=== PATIENT | female | born 1935 | race Caucasian/White ===

== ENCOUNTER 2017-01-23 01:58 | Observation (INO) | payer OTHER ==
[2017-01-23] VITALS (8 sets, daily range): BP systolic 120–155; BP diastolic 62–88; PULSE 89–102; RESP 15–18; TEMP 98.2–100.2; O2SAT 96–100
[~2017-01-23] VITALS: Ht 167.6 cm; Wt 72.7 kg
[~2017-01-23 01:58] MED LIST: HUMA100I SC; LEVEMIR SQ; LEVO.112 PO; LOSA50TA PO; QUET200 PO; VENL75CA44 PO
[2017-01-23] MEDS ORDERED: SODIUM CHLOR 0.9% 1000 ML INJ 1,000 ML IV ONE (02:31)
[2017-01-23] MEDS: SODIUM CHLORIDE 0.9% FLUSH 10 ML FLUSH IVF PRN ×2 (03:21→04:32)
[2017-01-23 03:33] LABS: AUTOMATED NEUTROPHIL # 5.5 TH/MM3 (1.8-7.7); BASOPHIL # 0.1 TH/MM3 (0-0.2); EOSINOPHIL # 0.4 TH/MM3 (0-0.4); EOSINOPHIL % 4.7 % (0.0-4.0); HEMATOCRIT 38.5 % (35.0-46.0); HEMO FLAGS DIFF FINAL; LYMPH % 23.8 % (9.0-44.0); LYMPHOCYTE # 2.1 TH/MM3 (1.0-4.8); MEAN CELL VOLUME 89.2 FL (80.0-100.0); MEAN CORPUSCULAR HEMOGLOBIN 29.5 PG (27.0-34.0); MEAN CORPUSCULAR HGB CONC 33.1 % (32.0-36.0); MONO % 9.1 % (0.0-8.0); NEUT % 61.4 % (16.0-70.0); PLATELET COUNT 156 TH/MM3 (150-450); RED BLOOD COUNT 4.32 MIL/MM3 (4.00-5.30); RED CELL DISTRIBUTION WIDTH 13.3 % (11.6-17.2); WHITE BLOOD COUNT 8.9 TH/MM3 (4.0-11.0)
[2017-01-23 03:51] LABS: ALT (GPT) 24 U/L (10-53); ANION GAP 8 MEQ/L (5-15); AST (GOT) 19 U/L (15-37); BICARBONATE 24.1 MEQ/L (21.0-32.0); BLOOD UREA NITROGEN 11 MG/DL (7-18); CHLORIDE 104 MEQ/L (98-107); GLOMERULAR FILTRATION RATE 45 ML/MIN (>89); POTASSIUM 4.3 MEQ/L (3.5-5.1); SODIUM (NA) 136 MEQ/L (136-145)
[2017-01-23 03:58] LABS: ALKALINE PHOSPHATASE 88 U/L (45-117); TOTAL BILIRUBIN ADULT 0.4 MG/DL (0.2-1.0)
[2017-01-23] MEDS ORDERED: ONDANSETRON HCL 4 MG/2 ML VIAL IV PUSH ONE (04:00)
--- NOTE | 2017-01-23 05:12 | RADRPT ---
EXAM DATE/TIME: 01/23/2017 04:25 [place] COMPARISON: CHEST SINGLE AP, July 13, 2016, 23:31. INDICATIONS : Chest pain. MEDICAL HISTORY : None. SURGICAL HISTORY : None. ENCOUNTER: Initial ACUITY: 1 day PAIN SCORE: 6/10 LOCATION: Bilateral chest FINDINGS: 2 portable frontal views of the chest demonstrate the lungs to be symmetrically aerated without evide nce of mass, infiltrate or effusion. The cardiomediastinal contours are unremarkable. Osseous struc tures are intact. CONCLUSION: No acute disease. Chapincito Landin Jr., MD on January 23, 2017 at 5:10 Board Certified Radiologist. This report was verified electronically.
[2017-01-23 05:38] LABS: BLOOD, URINE MOD (NEG); GLUCOSE,URINE 1000 mg/dL (NEG); KETONE, URINE NEG (NEG); NITRITE,URINE NEG (NEG); SQUAMOUS EPITHELIAL CELL URINE 1 /hpf (0-5); URINE COLOR LIGHT-YELLOW (YELLW/STRAW)
[2017-01-23 05:40] LABS: BACTERIA, URINE OCC /hpf; COMMENT (UR) CATH-CULTURE IND; CULTURE IF INDICATED CATH CULTURE IND
[2017-01-23] MEDS ORDERED: cefTRIAXone INJ 1,000 MG in SODIUM CHLORIDE 0.9% INJ 100 ML IV ONE (05:45)
--- NOTE | 2017-01-23 05:55 | PD ---
HPI Chief Complaint: Diabetic Time Seen by Provider: 02:27 Travel History International Travel<30 days: No Contact w/Intl Traveler<30days: No Traveled to known affect area: No History of Present Illness HPI 81-year-old female Armenian-speaking only arrives with an unknown complaint. translation services were provided with the online oriental medicine practitioner. pt was non- compliant with hpi with translatory. she held her head and cried "oh my god" repeatedly. she was unable to comply with hpi in any greater detail. in the initial attempt to interview the patient she stated responded no to questions about cp, n/v/d, fever/chills, sob and abdominal pain. 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) Psychiatric: Yes Reproductive: No Respiratory: No Radiation Therapy: No Thyroid Disease: Yes Tetanus Vaccination: Unknown ?: Unknown Past Surgical History Other Surgery: Yes Social History Alcohol Use: No Tobacco Use: No Substance Use: No Allergies-Medications (Allergen,Severity, Reaction): Coded Allergies: No Known Allergies (Unverified , 01/23/17) Reported Meds & Prescriptions Reported Meds & Active Scripts Active Active Prescriptions or Reported Medications Unobtainable Review of Systems Except as stated in HPI: all other systems reviewed are Neg General / Constitutional: No: Fever Physical Exam Narrative GENERAL: 81 F, WNWD, mild anxiety SKIN: Focused skin assessment warm/dry. HEAD: Atraumatic. Normocephalic. EYES: Pupils equal and round. No scleral icterus. No injection or drainage. ENT: No nasal bleeding or discharge. Mucous membranes pink and moist. NECK: Trachea midline. No JVD. CARDIOVASCULAR: Regular rate and rhythm. No murmur appreciated. RESPIRATORY: No accessory muscle use. Clear to auscultation. Breath sounds equal bilaterally. GASTROINTESTINAL: Soft. No focal tenderness. No flank tenderness. MUSCULOSKELETAL: No obvious deformities. No clubbing. No cyanosis. No edema. NEUROLOGICAL: Opens eyes and responds to voice but incomprehensible responses. No obvious cranial nerve deficit. Motor grossly within normal limits. PSYCHIATRIC: Appropriate mood and affect; insight and judgment normal. Data Data Last Documented VS Vital Signs Date Time Temp Pulse Resp B/P Pulse Ox O2 Delivery O2 Flow Rate FiO2 01/23/17 02:14 98.2 89 18 155/75 97 VS reviewed Orders Complete Blood Count With Diff (01/23/17 02:31) Comprehensive Metabolic Panel (01/23/17 02:31) Urinalysis - C+S If Indicated (01/23/17 02:31) Blood Glucose (01/23/17 02:31) Blood Glucose (01/23/17 03:31) Ecg Monitoring (01/23/17 02:31) Iv Access Insert/Monitor (01/23/17 02:31) Oximetry (01/23/17 02:31) NPO (01/23/17 02:31) Sodium Chlor 0.9% 1000 Ml Inj (Ns 1000 M (01/23/17 02:31) Sodium Chloride 0.9% Flush (Ns Flush) (01/23/17 02:45) Electrocardiogram (01/23/17 ) Chest, Single Ap (01/23/17 ) Ondansetron Inj (Zofran Inj) (01/23/17 04:00) Troponin I (01/23/17 04:36) Urine Culture (01/23/17 04:20) Ceftriaxone Inj (Rocephin Inj) (01/23/17 05:45) Admit Order (Ed Use Only) (01/23/17 06:19) Labs Laboratory Tests Test 01/23/17 01/23/17 03:10 04:20 White Blood Count 8.9 TH/MM3 Red Blood Count 4.32 MIL/MM3 Hemoglobin 12.7 GM/DL Hematocrit 38.5 % Mean Corpuscular Volume 89.2 FL Mean Corpuscular Hemoglobin 29.5 PG Mean Corpuscular Hemoglobin 33.1 % Concent Red Cell Distribution Width 13.3 % Platelet Count 156 TH/MM3 Mean Platelet Volume 9.5 FL Neutrophils (%) (Auto) 61.4 % Lymphocytes (%) (Auto) 23.8 % Monocytes (%) (Auto) 9.1 % Eosinophils (%) (Auto) 4.7 % Basophils (%) (Auto) 1.0 % Neutrophils # (Auto) 5.5 TH/MM3 Lymphocytes # (Auto) 2.1 TH/MM3 Monocytes # (Auto) 0.8 TH/MM3 Eosinophils # (Auto) 0.4 TH/MM3 Basophils # (Auto) 0.1 TH/MM3 CBC Comment DIFF FINAL Differential Comment Sodium Level 136 MEQ/L Potassium Level 4.3 MEQ/L Chloride Level 104 MEQ/L Carbon Dioxide Level 24.1 MEQ/L Anion Gap 8 MEQ/L Blood Urea Nitrogen 11 MG/DL Creatinine 1.15 MG/DL Estimat Glomerular Filtration 45 ML/MIN Rate Random Glucose 292 MG/DL Calcium Level 8.7 MG/DL Total Bilirubin 0.4 MG/DL Aspartate Amino Transf 19 U/L (AST/SGOT) Alanine Aminotransferase 24 U/L (ALT/SGPT) Alkaline Phosphatase 88 U/L Troponin I 0.02 NG/ML Total Protein 7.3 GM/DL Albumin 3.6 GM/DL Urine Color LIGHT-YELLOW Urine Turbidity CLEAR Urine pH 6.0 Urine Specific [place] 1.021 Urine Protein NEG mg/dL Urine Glucose (UA) 1000 mg/dL Urine Ketones NEG mg/dL Urine Occult Blood MOD Urine Nitrite NEG Urine Bilirubin NEG Urine Urobilinogen LESS THAN 2.0 MG/DL Urine Leukocyte Esterase SMALL Urine RBC 3 /hpf Urine WBC 14 /hpf Urine WBC Clumps OCC Urine Squamous Epithelial 1 /hpf Cells Urine Bacteria OCC /hpf Microscopic Urinalysis Comment CATH-CULTURE IND MDM Medical Decision Making Medical Screen Exam Complete: Yes Emergency Medical Condition: Yes Medical Record Reviewed: Yes Differential Diagnosis UTI, NSTEMI, anemia, renal failure, electrolyte imbalance Narrative Course CBC & BMP Diagram 01/23/17 03:10 LFTs normal Tn 0.02 UA: UTI present The patient will be admitted for IV antibiotics and reassessment. Discussed with Dr. Gomez. Diagnosis Primary Impression: UTI (urinary tract infection) Qualified Code: N30.00 - Acute cystitis without hematuria Additional Impression: Altered mental status Qualified Code: R41.82 - Altered mental status, unspecified altered mental status type Admitting Information Admitting Physician Requests: Observation Scripts Unable to Obtain Active Prescriptions or Reported Meds Ernesto Redd MD Jan 23, 2017 05:55 Admitting Information Admitting Physician Requests: Observation Ernesto Redd MD Jan 23, 2017 05:55
[2017-01-23] MEDS ORDERED: SODIUM CHLORIDE 0.9% FLUSH 10 ML FLUSH IV FLUSH PRN (06:30)
[2017-01-23] MEDS ORDERED: ONDANSETRON HCL 4 MG/2 ML VIAL IVP PRN (06:30)
[2017-01-23] MEDS ORDERED: NALOXONE HCL 0.4 MG/ML AMP IV PRN (06:30)
[2017-01-23] MEDS ORDERED: GLUCAGON 1 MG/ML VIAL OTHER PRN ×2 (06:45→16:45)
[2017-01-23] MEDS ORDERED: DEXTROSE 50% IN WATER 50 ML VIAL(D50) IV PUSH PRN ×2 (06:45→16:45)
[2017-01-23] MEDS: INSULIN ASPART SUPPLEMENTAL SCALE SQ SCH ×3 (08:51→20:59)
[2017-01-23] MEDS: SODIUM CHLORIDE 0.9% FLUSH 10 ML FLUSH IV FLUSH SCH ×2 (08:57→21:00)
[2017-01-23] MEDS: ACETAMINOPHEN 325 MG TAB PO PRN ×2 (12:19→19:41)
--- NOTE | 2017-01-23 15:57 | HHI.HP ---
HPI Service [facility] ([place], [place])ists Primary Care Physician Unknown Admission Diagnosis Cystitis, AMS Diagnoses: (1) Altered mental status Diagnosis: Secondary (2) Encephalopathy acute Diagnosis: Secondary (3) UTI (urinary tract infection) Diagnosis: Principal Travel History International Travel<30 Days: No Contact w/Intl Traveler <30 Da: No Traveled to Known Affected Are: No History of Present Illness Mrs. Vizcaino is an 81 year old female. She came into the ER without a specific complaint, but was not acting right. History could not be obtained then and can not be obtained now. I spoke to her in both Ghanaian and Vietnamese and she is not responsive to either. She moves and moans, but will not engage of make eye contact. A UTI is found and is a likely source of her encephalopathy. No evidence of neurodeficits. No contact at phone number listed (she is legally ). Review of Systems ROS Limitations: Altered Mental Status Past Family Social History Past Medical History Unable to obtain due to altered mental status Past Surgical History Unable to obtain due to altered mental status Reported Medications Reported Meds & Active Scripts Active Active Prescriptions or Reported Medications Unobtainable Unable to obtain due to altered mental status Allergies: Coded Allergies: No Known Allergies (Unverified , 01/23/17) Active Ordered Medications Administered Medications Medications (Trade) Dose Ordered Sig/Yaneli Route PRN Reason Start Time Stop Time Status Last Admin Dose Admin Acetaminophen (Tylenol) 650 mg Q4H PRN PO TEMP > 100.4 01/23/17 06:30 01/23/17 12:19 Family History Unable to obtain due to altered mental status Social History Unable to obtain due to altered mental status Physical Exam Vital Signs Vital Signs Date Time Temp Pulse Resp B/P Pulse Ox O2 Delivery O2 Flow Rate FiO2 01/23/17 11:57 100.2 101 18 152/88 96 01/23/17 10:15 99.3 102 18 144/72 98 01/23/17 08:51 98 18 144/62 100 Room Air 01/23/17 07:14 18 96 Room Air 01/23/17 06:39 90 15 120/80 99 Room Air 01/23/17 02:14 98.2 89 18 155/75 97 Physical Exam GENERAL: NAD, A&Ox0 SKIN: Warm and dry. HEAD: Normocephalic. EYES: No scleral icterus. No injection or drainage. NECK: Supple, trachea midline. No JVD or lymphadenopathy. CARDIOVASCULAR: Regular rate and rhythm without murmurs, gallops, or rubs. RESPIRATORY: Breath sounds equal bilaterally. No accessory muscle use. GASTROINTESTINAL: Abdomen soft, non-tender, nondistended. MUSCULOSKELETAL: No cyanosis, or edema. BACK: Nontender without obvious deformity. No CVA tenderness. Laboratory Laboratory Tests Test 01/23/17 01/23/17 03:10 04:20 White Blood Count 8.9 Red Blood Count 4.32 Hemoglobin 12.7 Hematocrit 38.5 Mean Corpuscular Volume 89.2 Mean Corpuscular Hemoglobin 29.5 Mean Corpuscular Hemoglobin 33.1 Concent Red Cell Distribution Width 13.3 Platelet Count 156 Mean Platelet Volume 9.5 Neutrophils (%) (Auto) 61.4 Lymphocytes (%) (Auto) 23.8 Monocytes (%) (Auto) 9.1 Eosinophils (%) (Auto) 4.7 Basophils (%) (Auto) 1.0 Neutrophils # (Auto) 5.5 Lymphocytes # (Auto) 2.1 Monocytes # (Auto) 0.8 Eosinophils # (Auto) 0.4 Basophils # (Auto) 0.1 CBC Comment DIFF FINAL Differential Comment Sodium Level 136 Potassium Level 4.3 Chloride Level 104 Carbon Dioxide Level 24.1 Anion Gap 8 Blood Urea Nitrogen 11 Creatinine 1.15 Estimat Glomerular Filtration 45 Rate Random Glucose 292 Calcium Level 8.7 Total Bilirubin 0.4 Aspartate Amino Transf 19 (AST/SGOT) Alanine Aminotransferase 24 (ALT/SGPT) Alkaline Phosphatase 88 Troponin I 0.02 Total Protein 7.3 Albumin 3.6 Urine Color LIGHT-YELLOW Urine Turbidity CLEAR Urine pH 6.0 Urine Specific [place] 1.021 Urine Protein NEG Urine Glucose (UA) 1000 Urine Ketones NEG Urine Occult Blood MOD Urine Nitrite NEG Urine Bilirubin NEG Urine Urobilinogen LESS THAN 2.0 Urine Leukocyte Esterase SMALL Urine RBC 3 Urine WBC 14 Urine WBC Clumps OCC Urine Squamous Epithelial 1 Cells Urine Bacteria OCC Microscopic Urinalysis Comment CATH-CULTURE IND Date/Time Procedure Status Source Growth 01/23/17 04:20 Urine Culture Received Urine Catheterized Urine Pending Result Diagram: 01/23/17 0310 01/23/17 0310 Imaging Last Impressions Chest X-Ray 01/23/17 0000 Signed Impressions: Service Date/Time: Monday, January 23, 2017 04:25 - CONCLUSION: No acute disease. Chapincito Landin Jr., MD Assessment and Plan Problem List: (1) UTI (urinary tract infection) ICD Code: N39.0 Status: Acute (2) Altered mental status ICD Code: R41.82 Status: Acute (3) Encephalopathy acute ICD Code: G93.40 Status: Acute Assessment and Plan Encephalopathy related to UTI Fever present this evening Continue Rocephin Supportive care and follow clinically for improvement DVT Prophylaxis Lovenox Physician Certification 2 Midnight Certification Type: Admission for Inpatient Services Order for Inpatient Services The services are ordered in accordance with Medicare regulations or non- Medicare payer requirements, as applicable. In the case of services not specified as inpatient-only, they are appropriately provided as inpatient services in accordance with the 2-midnight benchmark. Estimated LOS (days): 3 days is the estimated time the patient will need to remain in the hospital, assuming treatment plan goals are met and no additional complications. Post-Hospital Plan: Home Problem Qualifiers (1) Altered mental status: Qualified Code: R41.82 - Altered mental status, unspecified altered mental status type (2) UTI (urinary tract infection): Qualified Code: N30.00 - Acute cystitis without hematuria Ernesto Hameed MD Jan 23, 2017 15:57
[2017-01-23] MEDS ORDERED: ENALAPRILAT 1.25 MG/ML VIAL IV PUSH PRN (17:15)
[2017-01-23] MEDS: ENOXAPARIN SODIUM 40 MG/0.4 ML SYRINGE SQ SCH (18:22)
[2017-01-23] MEDS: SODIUM CHLOR 0.9% 1000 ML INJ 1,000 ML IV SCH (18:23)
[2017-01-24] VITALS (8 sets, daily range): BP systolic 114–185; BP diastolic 58–85; PULSE 83–96; RESP 18–20; TEMP 97.8–100.1; O2SAT 94–100
[2017-01-24] MEDS: SODIUM CHLOR 0.9% 1000 ML INJ 1,000 ML IV SCH ×3 (04:00→22:34)
[2017-01-24] MEDS: cefTRIAXone INJ 1,000 MG in SODIUM CHLORIDE 0.9% INJ 100 ML IV SCH (06:15)
[2017-01-24] MEDS: INSULIN ASPART SUPPLEMENTAL SCALE SQ SCH ×4 (06:38→21:19)
[2017-01-24 07:09] LABS: AUTOMATED NEUTROPHIL # 7.8 TH/MM3 (1.8-7.7); BASOPHIL # 0.1 TH/MM3 (0-0.2); BASOPHIL % 0.8 % (0.0-2.0); EOSINOPHIL % 0.4 % (0.0-4.0); HEMATOCRIT 35.6 % (35.0-46.0); HEMO FLAGS DIFF FINAL; LYMPH % 21.4 % (9.0-44.0); LYMPHOCYTE # 2.4 TH/MM3 (1.0-4.8); MEAN CELL VOLUME 89.9 FL (80.0-100.0); MEAN CORPUSCULAR HGB CONC 32.2 % (32.0-36.0); NEUT % 70.4 % (16.0-70.0); PLATELET COUNT 197 TH/MM3 (150-450); RED BLOOD COUNT 3.96 MIL/MM3 (4.00-5.30); RED CELL DISTRIBUTION WIDTH 13.1 % (11.6-17.2); WHITE BLOOD COUNT 11.1 TH/MM3 (4.0-11.0)
[2017-01-24 07:24] LABS: BICARBONATE 20.4 MEQ/L (21.0-32.0)
[2017-01-24] MEDS: SODIUM CHLORIDE 0.9% FLUSH 10 ML FLUSH IV FLUSH SCH ×2 (12:04→21:18)
[2017-01-24] MEDS: ACETAMINOPHEN 325 MG TAB PO PRN (12:04)
--- NOTE | 2017-01-24 14:21 | EKG ---
Date Performed: 01/23/2017 Time Performed: 03:39:40 PTAGE: 81 years EKG: Sinus rhythm NORMAL ECG Compared to prior tracing no significant change PREVIOUS TRACING : 07/13/16 @ 22:40 DOCTOR: Jamie Benoit Interpretating Date/Time 01/24/2017 14:20:18
--- NOTE | 2017-01-24 14:25 | HHI.PR ---
Subjective Remarks Admitted with encephalopathy and UTI. Underlying dementia. Significant improvement in cognition seen today. Cultures for UTI are pending. Patient is able to communicate today. She does not recall the times of confusion. Case discussed with her son. Objective Vital Signs Date Time Temp Pulse Resp B/P Pulse Ox O2 Delivery O2 Flow Rate FiO2 01/24/17 11:53 98.2 01/24/17 11:45 84 18 135/69 99 01/24/17 07:42 98.6 87 18 114/58 96 01/24/17 04:37 99.2 86 20 121/58 94 01/24/17 00:26 100.1 94 20 120/59 95 01/23/17 20:02 100.2 01/23/17 19:52 95 138/62 97 Result Diagram: 01/24/17 0656 01/24/17 0656 Imaging Last Impressions Chest X-Ray 01/23/17 0000 Signed Impressions: Service Date/Time: Monday, January 23, 2017 04:25 - CONCLUSION: No acute disease. Chapincito Landin Jr., MD Objective Remarks GENERAL: NAD, A&Ox2 SKIN: Warm and dry. HEAD: Normocephalic. EYES: No scleral icterus. No injection or drainage. NECK: Supple, trachea midline. No JVD or lymphadenopathy. CARDIOVASCULAR: Regular rate and rhythm without murmurs, gallops, or rubs. RESPIRATORY: Breath sounds equal bilaterally. No accessory muscle use. GASTROINTESTINAL: Abdomen soft, non-tender, nondistended. MUSCULOSKELETAL: No cyanosis, or edema. BACK: Nontender without obvious deformity. No CVA tenderness. Medications and IVs Administered Medications Medications (Trade) Dose Ordered Sig/Yaneli Route PRN Reason Start Time Stop Time Status Last Admin Dose Admin Sodium Chloride (NS Flush) 2 ml BID IV FLUSH 01/23/17 09:00 01/24/17 12:04 Acetaminophen 650 mg 650 mg Q4H PRN PO TEMP > 100.4 01/23/17 06:30 01/24/17 12:04 Ceftriaxone Sodium/Sodium Chloride (Rocephin Inj/NS Inj) 100 ml @ 200 mls/hr Q24H IV 01/24/17 07:00 01/24/17 06:15 Enoxaparin Sodium 40 mg 40 mg Q24H SQ 01/23/17 16:00 01/23/17 18:22 Sodium Chloride (NS 1000 ml Inj) 1,000 ml @ 100 mls/hr Q10H IV 01/23/17 17:00 01/24/17 04:00 A/P Problem List: (1) UTI (urinary tract infection) ICD Code: N39.0 (2) Altered mental status ICD Code: R41.82 (3) Encephalopathy acute ICD Code: G93.40 Assessment and Plan Significant improvement today Follow urine cultures Continue Rocephin Continue monitoring for improvements in cognition Problem Qualifiers (1) UTI (urinary tract infection): Qualified Code: N30.00 - Acute cystitis without hematuria (2) Altered mental status: Qualified Code: R41.82 - Altered mental status, unspecified altered mental status type Ernesto Hameed MD Jan 24, 2017 14:25
[2017-01-24] MEDS: ENOXAPARIN SODIUM 40 MG/0.4 ML SYRINGE SQ SCH (16:39)
[2017-01-25 03:40] VITALS: BP 158/70; PULSE 77; RESP 18; TEMP 98.3; O2SAT 96
[2017-01-25] MEDS: cefTRIAXone INJ 1,000 MG in SODIUM CHLORIDE 0.9% INJ 100 ML IV SCH (06:40)
[2017-01-25] MEDS: INSULIN ASPART SUPPLEMENTAL SCALE SQ SCH ×3 (06:46→17:10)
[2017-01-25 08:14] VITALS: BP 145/67; PULSE 78; RESP 17; TEMP 98.4; O2SAT 96
[2017-01-25] MEDS: SODIUM CHLORIDE 0.9% FLUSH 10 ML FLUSH IV FLUSH SCH (09:00)
[2017-01-25 10:12] LABS: HEMATOCRIT 38.8 % (35.0-46.0); MEAN CELL VOLUME 89.8 FL (80.0-100.0); MEAN CORPUSCULAR HGB CONC 33.4 % (32.0-36.0); PLATELET COUNT 206 TH/MM3 (150-450); RED BLOOD COUNT 4.32 MIL/MM3 (4.00-5.30); RED CELL DISTRIBUTION WIDTH 13.5 % (11.6-17.2); REVIEW FLAG FINAL; WHITE BLOOD COUNT 8.7 TH/MM3 (4.0-11.0)
[2017-01-25 10:23] LABS: BICARBONATE 20.7 MEQ/L (21.0-32.0); POTASSIUM 3.6 MEQ/L (3.5-5.1)
--- NOTE | 2017-01-25 11:36 | HHI.PR ---
Subjective Remarks Follow-up for encephalopathy. Difficulties with [employer] translation services during interview, however the patient preferred to have Dr. Mcnulty speak in [place]ican with her instead. The patient has multiple vague medical complaints. She complains of chest discomfort, described more as palpitations, denies pain. She also complains of abdominal gas and decreased appetite, although she denies any nausea. She does complain of vague headache complaints. She denies any fevers. She does live alone and has 3 children, they live away. She does endorse depression, although she is not on any medications for that. Palpitations as above sounds somewhat like anxiety attacks, but the patient denies any anxiety. She is agreeable to speak with the psychiatrist. Objective Vitals Vital Signs Date Time Temp Pulse Resp B/P Pulse Ox O2 Delivery O2 Flow Rate FiO2 01/25/17 08:14 98.4 78 17 145/67 96 01/25/17 03:40 98.3 77 18 158/70 96 01/24/17 23:49 97.8 83 20 153/68 100 01/24/17 20:32 98.5 96 18 185/85 94 01/24/17 15:34 97.8 83 18 143/84 98 01/24/17 11:53 98.2 01/24/17 11:45 84 18 135/69 99 I/O 01/24/17 01/24/17 01/24/17 01/25/17 01/25/17 01/25/17 07:00 15:00 23:00 07:00 15:00 23:00 Intake Total 300 ml Balance 300 ml Intake IV Total 300 ml # Voids 1 Result Diagram: 01/25/17 0900 01/25/17 0900 Imaging Last Impressions Chest X-Ray 01/23/17 0000 Signed Impressions: Service Date/Time: Monday, January 23, 2017 04:25 - CONCLUSION: No acute disease. Chapincito Landin Jr., MD Objective Remarks GENERAL: Well-developed well-nourished. In no acute distress. SKIN: Warm and dry. No lesions noted. HEENT: Normocephalic. Pupils equal and round. Mucous membranes pink and moist. CARDIOVASCULAR: Regular rate and rhythm. No murmur appreciated. No chest wall TTP. RESPIRATORY: No accessory muscle use. Clear to auscultation. Breath sounds equal bilaterally. GASTROINTESTINAL: Abdomen soft, non-tender, nondistended. Bowel sounds x4. MUSCULOSKELETAL: No obvious deformities. No clubbing or cyanosis. No edema. NEUROLOGICAL: Awake and alert. No focal neurological deficits. Moves upper and lower extremities spontaneously. Normal speech. PSYCHIATRIC: Slightly depressed mood and affect; insight and judgment normal. A/P Problem List: (1) Altered mental status ICD Code: R41.82 Status: Resolved (2) Encephalopathy acute ICD Code: G93.40 Status: Resolved (3) Adjustment disorder with emotional disturbance ICD Code: F43.29 Status: Acute Assessment and Plan 81-year-old primarily [place]ican-speaking female who presented was questionable altered mental status Acute encephalopathy? Reportedly the patient was "not acting right" on previous evaluation. The patient is currently oriented and pleasant. She was given IV antibiotics 3 days for possible UTI, however urine cultures with no growth, DC antibiotics. Other signs of infection. Upon review of records it seems that she has complained of multiple vague medical complaints presenting to the ED, which she continues to do. She does endorse depression with possible anxiety attacks. We will check TSH and B12 for underlying medical etiology. Consult PT. Patient is telling me she has more symptoms of anxiety and says she is depressed. Says she is not taking any meds. Would like to see a psychiatry doctor Consult psychiatry. Hyperglycemia: Diabetes history? Reconcile home medications. Monitor Accu- Cheks. Cover with SSI. Check hemoglobin A1c. Atypical chest discomfort/palpitations: Troponin was 0.02. EKG reviewed which showed NSR. Suspect secondary to anxiety as above. Monitor. DVT prophylaxis: Lovenox Written by Roger Man, acting as scribe for Dr. Mcnulty on 01/25/17 at 11:36. This note was transcribed by alan WALSH. I, Dr. Josiane Mcnulty personally performed the history, physical exam, and medical decision making; and confirmed the accuracy of the information in the transcribed note. Authenticated by Dr. Josiane Mcnulty on 01/25/17 at 11:36. Discharge Planning Patient is medically stable. VSS. Patient has more symptoms of depression/ anxiety and is asking for help. Seen by psychiatry service Dr Elizabeth. Patient will be taken to inpatient psych unit. Discharge to inpatient psychiatry in stable condition Diet healthy heart diet Activity ad ramakrishna as tolerated Medications per med reconciliations To follow up as OP with PCP and consultants Problem Qualifiers (1) Altered mental status: Qualified Code: R41.82 - Altered mental status, unspecified altered mental status type Roger Man Jan 25, 2017 11:36 Josiane Mcnulty MD Jan 25, 2017 15:49
[2017-01-25] MEDS ORDERED: MEMANTINE HCL 5 MG TAB PO SCH (15:00)
[2017-01-25] MEDS ORDERED: DONEPEZIL HCL 5 MG TAB PO SCH (15:00)
[2017-01-25] MEDS ORDERED: PILL SPLITTER OTHER PRN (15:15)
--- NOTE | 2017-01-25 15:18 | PD.CONS ---
Provisional Diagnosis Admission Date Jan 23, 2017 at 06:21 [place] I. Major depressive disorder, recurrent, severe, without psychosis, dementia without behavioral disturbances [place] II. Deferred [place] III. Cystitis, HTN, DM, hypothyroidism History of Present Illness Service Psychiatry Consult Requested By Primary Care Physician Unknown HPI The patient is a 81-year-old [place] Island[place] woman, domiciled alone in [place], single, with psychiatric history of depression, 3 previous psychiatric hospitalizations, previous suicidal attempts, she is not engaged in any outpatient psychiatric care, medical history of hypothyroidism, hypertension, diabetes mellitus, brought to the ER due to altered mental status, diagnosed with metabolic encephalopathy mostly related with cystitis. On psychiatric evaluation patient is interview and primary language, Citizen Of [place], patient says that she has been very depressed, she says that her daughter is very sick, had a CVA a month ago and is not doing very well. She also says that she has been living alone with poor social and family support, and she is becoming overwhelmed, forgetful and sometimes with the sensation that she is going crazy. Patient also reports frequent panic attacks," I feel like if ongoing ago crazy and I'm going to alone in my apartment". She reports depressed mood, low self-esteem, decrease energy and concentration, generalized pessimism , frequent suicidal thoughts, yesterday she was thinking and committing suicide "but I did not do it because I am a amish person". Patient is just partially oriented, she knows she is in the hospital, but she doesn't know the name, she says that she is in January 1997, the crabber is Manish Mckeon. She denies visual and auditory hallucinations, she denies suicidal or homicidal ideation. Collateral information from her son, Juan Langley, was obtained. He says that his mother has been very forgetful, but also has been very depressed in the last weeks and she has been constantly talking about being . He says that he does not think his mother safe at her apartment. She has an extensive history of depression and suicidal attempts in the past. He says that this is the way she has been in the past before trying to overdose. He prefers that his mother is admitted in psychiatrist and stabilized. Review of Systems Constitutional: DENIES: Diaphoretic episodes, Fatigue, Fever, Weight gain, Weight loss, Chills, Dizziness, Change in appetite, Night Sweats Endocrine: DENIES: Abnorml menstrual pattern, Heat/cold intolerance, Polydipsia , Polyuria, Polyphagia Eyes: DENIES: Blurred vision, Diplopia, Eye inflammation, Eye pain, Vision loss , Photosensitivity, Double Vision Ears, nose, mouth, throat: DENIES: Tinnitus, Hearing loss, Vertigo, Nasal discharge, Oral lesions, Throat pain, Hoarseness, Ear Pain, Running Nose, Epistaxis, Sinus Pain, Toothache, Odynophagia Cardiovascular: DENIES: Chest pain, Palpitations, Syncope, Dyspnea on Exertion , PND, Lower Extremity Edema, Orthopnea, Claudication Immunologic/allergic: DENIES: Eczema, Urticaria Neurologic: DENIES: Abnormal gait, Headache, Localized weakness, Paresthesias, Seizures, Speech Problems, Tremor, Poor Balance Psychiatric: COMPLAINS OF: Depression, DENIES: Anxiety, Confusion, Mood changes, Hallucinations, Agitation, Suicidal Ideation, Homicidal Ideation, Delusions Past Family Social History Coded Allergies: No Known Allergies (Unverified , 01/23/17) Discontinued Reported Medications Venlafaxine HCl (Venlafaxine HCl ER)75 Mg Cap Po Daily 07/14/16 Quetiapine Fumarate 200 Mg Fdc054 Mg PO HS 07/14/16 Losartan Potassium 50 MG 50 Mg Tab50 Mg PO DAILY 07/14/16 Discontinued Scripts Levothyroxine Sodium (Synthroid)112 Mcg Dim838 Mcg PO DAILY@06 30 Days Prov:Roger Man 07/15/16 Insulin Detemir (Levemir) Inj30 Units SQ HS 14 Days Prov:Roger Man 07/15/16 INSULIN HUMAN LISPRO 3 ml vial (Humalog 3 ml vial)100 Units/Ml Inj15 Units SC TIDAC 14 Days Prov:Roger Man 07/15/16 Current Medications Medications (Trade) Dose Ordered Sig/Yaneli Route Start Time Stop Time Status Last Admin (NS Flush) 2 ml UNSCH PRN IV FLUSH 01/23/17 06:30 (NS Flush) 2 ml BID IV FLUSH 01/23/17 09:00 01/24/17 21:18 (Tylenol) 650 mg Q4H PRN PO 01/23/17 06:30 01/24/17 12:04 (Zofran Inj) 4 mg Q6H PRN IVP 01/23/17 06:30 (Narcan Inj) 0.4 mg UNSCH PRN IV 01/23/17 06:30 (Lovenox Inj) 40 mg Q24H SQ 01/23/17 16:00 01/24/17 16:39 (D50w (Vial) Inj) 25 ml UNSCH PRN IV PUSH 01/23/17 16:45 (Glucagon Inj) 1 mg UNSCH PRN OTHER 01/23/17 16:45 (Vasotec Inj) 1.25 mg Q6H PRN IV PUSH 01/23/17 17:15 01/24/17 21:23 Family History She denies psychiatric history Social History Patient was born and raised in [place], she has been living in [place] for 1 year, he is a , supported by Social Security, her highest level of education is high school Patient's Strengths (min. 2) Verbal communication family support Physical Exam On physical exam, no EPS, no tremors, no psychomotor retardation or agitation, no withdrawal symptoms present Vital Signs Vital Signs Date Time Temp Pulse Resp B/P Pulse Ox O2 Delivery O2 Flow Rate FiO2 01/25/17 08:14 98.4 78 17 145/67 96 01/23/17 08:51 Room Air I/O 01/24/17 01/24/17 01/24/17 07:59 15:59 23:59 Intake Total 300 ml Balance 300 ml Lab Results QTc interval is 431, WBC 8.7, Hgb 13, HCT 38.8, NA 141, K3.6, BUN 14, creatinine 0.8, random glucose 193, Mental Status Examination Appearance -appearing woman, good hygiene, hospital [facility], calm and cooperative Speech: Unremarkable Orientation: x3 Memory: Impaired (describe) Thought Process: Goal Directed, Loose Association Thought Content: Unremarkable Hallucination Type: None Attention and Concentration: Good Suicidal Ideation: No Previous Suicide Attempts: Yes Homicidal Ideation: No Insight: Poor Judgment: Impulsive Affect: Anxious Mood: Sad Motor Activity: Normal gait Assessment & Plan Problem List: (1) Major depressive disorder Assessment & Plan: On psychiatric evaluation patient presents moderate to severe symptomatology of depression, ambivalent suicidal ideation, no plan, and also evidence of cognitive impairment most probably related with underlying undiagnosed dementia. As per son collateral information patient has been depressed, expressing suicidal thoughts very often, noncompliant with her medications, self neglecting herself as she has done in the past before decompensating of her depression and ending up with suicidal attempts. At this moment the patient represents a high risk of suicidality and needs psychiatric admission for stabilization of depression and safety. We'll restart Namenda 5 mg and Aricept 5 mg to slower the progression of dementia. Will restart citalopram 10 mg daily for depressive symptoms. Patient can be transferred to psychiatric unit once medically clear. Jonathan mares act for involuntary commitment. ICD Code: F32.9 Assessment & Plan Estimated LOS: days Problem Qualifiers (1) Major depressive disorder: Rigoberto Marsh MD Jan 25, 2017 15:18
[2017-01-25] MEDS ORDERED: NOVOLOGSS SQ (15:37)
[2017-01-25] MEDS ORDERED: CITALOPRAM HYDROBROMIDE 20 MG TAB PO SCH (16:00)
--- NOTE | 2017-01-25 16:08 | HHI.DS ---
Discharge Summary Admission Date Jan 23, 2017 at 06:21 Discharge Date: Jan 25, 2017 Admitting Diagnosis Cystitis, AMS (1) Altered mental status ICD Code: R41.82 Diagnosis: Principal (2) Encephalopathy acute ICD Code: G93.40 Diagnosis: Principal (3) Adjustment disorder with emotional disturbance ICD Code: F43.29 Diagnosis: Principal Procedures None Brief History - From Admission Mrs. Vizcaino is an 81 year old female. She came into the ER without a specific complaint, but was not acting right. History could not be obtained then and can not be obtained now. I spoke to her in both Citizen Of [place] and [place] and she is not responsive to either. She moves and moans, but will not engage of make eye contact. A UTI is found and is a likely source of her encephalopathy. No evidence of neurodeficits. No contact at phone number listed (she is legally ). CBC/BMP: 01/25/17 0900 01/25/17 0900 Significant Findings Laboratory Tests Test 01/23/17 01/23/17 01/24/17 01/25/17 03:10 04:20 06:56 09:00 Monocytes (%) (Auto) 9.1 % (0.0-8.0) Eosinophils (%) (Auto) 4.7 % (0.0-4.0) Creatinine 1.15 MG/DL (0.50-1.00) Estimat Glomerular Filtration 45 ML/MIN (>89) 56 ML/MIN (>89) 62 ML/MIN (>89) Rate Random Glucose 292 MG/DL 262 MG/DL 193 MG/DL (74-106) (74-106) (74-106) Urine Glucose (UA) 1000 mg/dL (NEG) Urine Occult Blood MOD (NEG) Urine Leukocyte Esterase SMALL (NEG) Urine WBC 14 /hpf (0-5) Urine WBC Clumps OCC (NONE) Urine Bacteria OCC /hpf (NONE) White Blood Count 11.1 TH/MM3 (4.0-11.0) Red Blood Count 3.96 MIL/MM3 (4.00-5.30) Hemoglobin 11.5 GM/DL (11.6-15.3) Neutrophils (%) (Auto) 70.4 % (16.0-70.0) Neutrophils # (Auto) 7.8 TH/MM3 (1.8-7.7) Sodium Level 134 MEQ/L (136-145) Carbon Dioxide Level 20.4 MEQ/L 20.7 MEQ/L (21.0-32.0) (21.0-32.0) Calcium Level 7.7 MG/DL 8.1 MG/DL (8.5-10.1) (8.5-10.1) Chloride Level 109 MEQ/L (98-107) Imaging Last Impressions Chest X-Ray 01/23/17 0000 Signed Impressions: Service Date/Time: Monday, January 23, 2017 04:25 - CONCLUSION: No acute disease. Chapincito Landin Jr., MD PE at Discharge GENERAL: Well-developed well-nourished. In no acute distress. SKIN: Warm and dry. No lesions noted. HEENT: Normocephalic. Pupils equal and round. Mucous membranes pink and moist. CARDIOVASCULAR: Regular rate and rhythm. No murmur appreciated. No chest wall TTP. RESPIRATORY: No accessory muscle use. Clear to auscultation. Breath sounds equal bilaterally. GASTROINTESTINAL: Abdomen soft, non-tender, nondistended. Bowel sounds x4. MUSCULOSKELETAL: No obvious deformities. No clubbing or cyanosis. No edema. NEUROLOGICAL: Awake and alert. No focal neurological deficits. Moves upper and lower extremities spontaneously. Normal speech. PSYCHIATRIC: Slightly depressed mood and affect; insight and judgment normal. Pt update on day of discharge The patient was evaluated by psychiatry who recommended transfer to inpatient psychiatry when medically cleared. Psychiatry note reports the patient is Kauffman acted. The patient is medically clear for discharge to inpatient psychiatry. Hospital Course 81-year-old primarily [place]ian-speaking female who presented was questionable altered mental status Acute encephalopathy? Reportedly the patient was "not acting right" on previous evaluation. The patient is currently oriented and pleasant. She was given IV antibiotics 3 days for possible UTI, however urine cultures with no growth, DC'd antibiotics. No other signs of infection. Upon review of records it seems that she has complained of multiple vague medical complaints presenting to the ED, which she continues to do. She does endorse depression with possible anxiety attacks. TSH and B12 within normal limits. Patient is telling me she has more symptoms of anxiety and says she is depressed. Says she is not taking any meds. Would like to see a psychiatry doctor Consulted psychiatry who recommended transfer to inpatient psychiatry for MDD. Hyperglycemia: Diabetes history? Reconcile home medications. Continue sliding scale insulin coverage. Hemoglobin A1c pending. Pt Condition on Discharge: Stable Discharge Disposition: Disc to Psych Care Fac Discharge Time: > 30 minutes Discharge Instructions DIET: Follow Instructions for: Diabetic Diet Activities you can perform: Regular-No Restrictions Follow up Referrals: PCP Follow-up - 2-3 Days with [facility] Psych[facility]ry Adult - Next Day New Medications: Insulin Aspart Inj (Novolog Inj) 100 Unit/Ml Inj 1 UNIT SQ ACHS SLIDING SCALE Blood Sugar Management Days 30 INJECTION Additional Information Written by Roger Man, acting as scribe for Dr. Mcnulty on 01/25/17 at 16:08. This note was transcribed by alan WALSH. I, Dr. Josiane Mcnulty personally performed the history, physical exam, and medical decision making; and confirmed the accuracy of the information in the transcribed note. Authenticated by Dr. Josiane Mcnulty on 01/25/17 at 16:08. Roger Man Jan 25, 2017 16:08 Josiane Mcnulty MD Jan 25, 2017 21:20
[2017-01-25 16:13] LABS: HEMOGLOBIN A1a 1.2 %; HEMOGLOBIN A1b 2.6 %; HEMOGLOBIN Ao 77.5 %; HEMOGLOBIN LA1C 2.7 %
[2017-01-25 16:22] VITALS: BP 121/68; PULSE 78; RESP 18; TEMP 98.4; O2SAT 97
[2017-01-25 17:07] LABS: HEMOGLOBIN P3 4.9 %
[2017-01-25] MEDS: ENOXAPARIN SODIUM 40 MG/0.4 ML SYRINGE SQ SCH (17:10)
== END 2017-01-25 17:54 ==
LOC: NEPC 01:58 → NEDA 06:21 → NEPHCDU 09:34
PROVIDERS: ADMIT Hospitalist; ATTEND Hospitalist
DX: N30.00 Acute cystitis without hematuria (principal); R41.82 Altered mental status, unspecified; G93.41 Metabolic encephalopathy; F43.29 Adjustment disorder with other symptoms; F32.9 Major depressive disorder, single episode, unspecified; F41.0 Panic disorder [episodic paroxysmal anxiety]; F03.90 Unspecified dementia, unspecified severity, without behavioral disturbance, psychotic disturbance, mood disturbance, and anxiety; R07.89 Other chest pain; R00.2 Palpitations; E11.9 Type 2 diabetes mellitus without complications; I10 Essential (primary) hypertension; E78.00 Pure hypercholesterolemia, unspecified; R45.851 Suicidal ideations; Z79.899 Other long term (current) drug therapy; Z79.84 Long term (current) use of oral hypoglycemic drugs; Z91.19 Patient's noncompliance with other medical treatment and regimen
CPT/HCPCS: 71010; 80048; 80053; 81001; 82607; 82948; 83036; 84443; 84484; 85025; 85027; 87086; 93005; 96361; 96374; 97162; 99285; G0378; G8987; G8988; J0696; J1650; J1815; J2405; J7030

== ENCOUNTER 2017-01-25 16:38 | Inpatient (IN) | payer OTHER, MEDICARE ==
[~2017-01-25 16:38] MED LIST changes: +NOVOLOGSS SQ
[2017-01-25 18:44] VITALS: BP 164/82; PULSE 85; RESP 16; O2SAT 98
[2017-01-25] MEDS ORDERED: LORazepam 1 MG TAB PO PRN (19:00)
[2017-01-25] MEDS ORDERED: MAGNESIUM HYDROXIDE SUSP 30 ML CUP PO PRN (19:00)
[2017-01-25] MEDS: NICOTINE 21 MG/24 HR PATCH T-DERMAL SCH (19:00)
[2017-01-25] MEDS ORDERED: LORazepam 2 MG/ML VIAL IM PRN ×2 (19:00)
[2017-01-25] MEDS ORDERED: ALUMINUM/MAGNESIUM/SIMETH 30 ML CUP PO PRN (19:00)
[2017-01-25] MEDS ORDERED: LORazepam 0.5 MG TAB PO PRN (19:00)
[2017-01-25] MEDS ORDERED: ACETAMINOPHEN 325 MG TAB PO PRN (19:00)
[2017-01-25] MEDS: REMOVE OLD NICODERM (NICOTINE) PATCH T-DERMAL SCH (21:00)
[2017-01-26 05:25] VITALS: BP 167/80; PULSE 80; RESP 16; TEMP 98.5; O2SAT 98
[2017-01-26 08:36] LABS: ANION GAP 9 MEQ/L (5-15); BICARBONATE 25.9 MEQ/L (21.0-32.0); BLOOD UREA NITROGEN 14 MG/DL (7-18); CHLORIDE 105 MEQ/L (98-107); GLOMERULAR FILTRATION RATE 51 ML/MIN (>89); HDL CHOLESTEROL 54.1 MG/DL (40.0-60.0); LDL CHOLESTEROL 59 MG/DL (0-99); POTASSIUM 4.2 MEQ/L (3.5-5.1); SODIUM (NA) 140 MEQ/L (136-145)
[2017-01-26] MEDS ORDERED: DEXTROSE 50% IN WATER 50 ML VIAL(D50) IV PUSH PRN ×2 (08:45)
[2017-01-26] MEDS ORDERED: GLUCAGON 1 MG/ML VIAL OTHER PRN ×2 (08:45)
[2017-01-26] MEDS: NICOTINE 21 MG/24 HR PATCH T-DERMAL SCH (09:00)
[2017-01-26] MEDS: INSULIN DETEMIR 100 UNITS/ML VIAL SQ SCH ×2 (09:33→20:03)
--- NOTE | 2017-01-26 10:14 | HHI.HP ---
Provisional Diagnosis Admission Date Jan 25, 2017 at 16:38 [place] I. 1. Adjustment disorder, unspecified Rule out depressive disorder [place] II. Deferred [place] V. GAF is unclear at present Certification of Person's Competence To Provide Express and Informed Consent I have personally examined Keyanna Gonsales , a person being served at [facility] on, Jan 26, 2017 10:14. Express and informed consent means consent voluntarily given in writing, by a competent person, after sufficient explanation and disclosure of the subject matter involved to enable the person to make a knowing and willful decision without any element of force, fraud, deceit, duress, or other form of constraint or coercion. This person is 18 years of age or older, is not now known to be incompetent to consent to treatment with a guardian advocate, and does not have a health care surrogate or proxy currently making medical treatment decisions. I have found this person to be one of the following: [] Competent to provide express and informed consent, as defined above, for voluntary admission to this facility and is competent to provide express and informed consent for treatment. He/she has the consistent capacity to make well reasoned, willful, and knowing decisions concerning his or her medical or mental health treatment. The person fully and consistently understands the purpose of the admission for examination/placement and is fully capable of personally exercising all rights assured under [place] Incompetent to provide express and informed consent to voluntary admission, and this is incompetent to provide express and informed consent to treatment. The person must be transferred to involuntary status and a petition for a guardian advocate filed with the Circuit Court. [x] Refusing to provide express and informed consent to voluntary admission but is competent to provide express and informed consent for treatment. The person must be discharged or transferred to involuntary status. Form shall be completed within 24 hours of a person's arrival at the receiving facility and filed in the clinical record of each person: 1. Admitted on a voluntary basis 2. Permitted to provide express and informed consent to his/her own treatment 3. Allowed to transfer from involuntary to voluntary status 4. Prior to permitting a person to consent to his or her own treatment after having been previously found incompetent to consent to treatment. History of Present Illness Capacity: Has Capacity (based on available evidence) HPI Ms. Gonsales is an 81-year-old female with a history of depression who presented initially to the ED on 01/23 with vague somatic complaints. Patient was admitted to the clinical decision unit. At one point she articulated some depressive symptoms and so a psychiatric consultation was requested. Dr. Marsh saw the patient in consultation and obtained collateral from patient's son and recommended admission to the inpatient psychiatric unit, placing the patient under the Kauffman act. Reviewing the electronic medical record, I note the patient was brought into the ED last made by her son and was evaluated by the psychiatric nurse practitioner. At that time, patient alleged that son's was mistreating her and a DCF report was initiated. Patient seen and examined with the benefit of computer-based plug paster. Unfortunately, the patient struggles to utilize the computer-based interpretations service, and so the interview was somewhat limited. From what I can gather, the patient says that she was upset in the CDU because a surgery nurse handled her somewhat roughly in her estimation, and in response the patient thought, and perhaps articulated the belief, that she wished that she were . She does not articulate any SI, intent or plan now. She answers many of my questions with seeming non-sequiturs, but I cannot discern if this is because her thoughts are disorganized or if it is a consequence of her difficulties interacting with the computer-based plug paster. The psychiatric interview is limited for this reason. I have instructed the nursing staff to call in an in-person plug paster, and it is my hope that we will have more luck then. I am unable to obtain any meaningful past psychiatric, family, chemical dependency or social history from the patient for the reasons noted above. Review of Systems ROS Limitations: Language Barrier Except as stated in HPI: all other systems reviewed are Neg Past Psych History Psychological trauma history Unable to obtain for reasons noted above Violence risk - others (6 mos) Unclear but suspect lower imminent risk Violence risk - self (6 mos) Unclear. Patient may have a history of suicidal gestures or threats. She is not articulating any suicidal ideation at this time. Substance Abuse History Drugs/Alcohol past 12 months See above Past Family Social History Coded Allergies: No Known Allergies (Unverified , 01/23/17) Past Medical History Includes a history of diabetes. See electronic medical record. Active Scripts Insulin Aspart Inj (Novolog Inj)100 Unit/Ml Inj1 Unit SQ ACHS SLIDING SCALE 30 Days Prov:Roger Man 01/25/17 Discontinued Reported Medications Venlafaxine HCl (Venlafaxine HCl ER)75 Mg Cap Po Daily 07/14/16 Quetiapine Fumarate 200 Mg Aau513 Mg PO HS 07/14/16 Losartan Potassium 50 MG 50 Mg Tab50 Mg PO DAILY 07/14/16 Discontinued Scripts Levothyroxine Sodium (Synthroid)112 Mcg Jfv310 Mcg PO DAILY@06 30 Days Prov:Roger Man 07/15/16 Insulin Detemir (Levemir) Inj30 Units SQ HS 14 Days Prov:Roger Man 07/15/16 INSULIN HUMAN LISPRO 3 ml vial (Humalog 3 ml vial)100 Units/Ml Inj15 Units SC TIDAC 14 Days Prov:Roger Man 07/15/16 Current Medications Medications (Trade) Dose Ordered Sig/Yaneli Route Start Time Stop Time Status Last Admin (Ativan) 0.5 mg Q12H PRN PO 01/25/17 19:00 (Ativan Inj) 0.5 mg Q12H PRN IM 01/25/17 19:00 (Tylenol) 650 mg Q4H PRN PO 01/25/17 19:00 (Milk Of Magnesia Liq) 30 ml DAILY PRN PO 01/25/17 19:00 (Mag-Al Plus Susp Liq) 30 ml Q6H PRN PO 01/25/17 19:00 (Habitrol 21 Mg Patch.24 Hr) 1 patch DAILY T-DERMAL 01/25/17 19:00 Miscellaneous Information 1 HS T-DERMAL 01/25/17 21:00 (D50w (Vial) Inj) 25 ml UNSCH PRN IV PUSH 01/26/17 08:45 (Glucagon Inj) 1 mg UNSCH PRN OTHER 01/26/17 08:45 (Levemir Inj) 12 units Q12HR SQ 01/26/17 09:00 01/26/17 09:33 Family History See above Social History See above Patient's Strengths (min. 2) In a monitored setting. Verbally fluent. Physical Exam Physical examination was completed by hospitalist in the CDU. On my examination today, the patient appears to be in no acute physical distress. She appears well-nourished and well-developed. No motor abnormalities noted. Steady gait and station. Labs and vital signs reviewed: Vital Signs Vital Signs Date Time Temp Pulse Resp B/P Pulse Ox O2 Delivery O2 Flow Rate FiO2 01/26/17 05:25 98.5 80 16 167/80 98 I/O 01/25/17 01/25/17 01/26/17 08:00 16:00 00:00 Intake Total 480 ml Balance 480 ml Lab Results Item Value Date Time White Blood Count 8.7 TH/MM3 01/25/17899 Hemoglobin 13.0 GM/DL 01/25/17899 Platelet Count 206 TH/MM3 01/25/17899 Sodium Level 140 MEQ/L 01/26/17657 Potassium Level 4.2 MEQ/L 01/26/17657 Chloride Level 105 MEQ/L 01/26/17657 Carbon Dioxide Level 25.9 MEQ/L 01/26/17657 Blood Urea Nitrogen 14 MG/DL 01/26/17657 Creatinine 1.04 MG/DL H 01/26/17657 Random Glucose 300 MG/DL H # 01/26/17 0658 Hemoglobin A1c 10.9 % H 01/25/17899 Thyroid Stimulating Hormone 3rd Gen 1.130 uIU/ML 01/25/17899 Vitamin B12 Level 536 PG/ML 01/25/17899 Urinalysis obtained at admission was initially concerning for UTI but urine culture was no growth 48 hours. Chest x-ray on presentation here was read as no acute disease. Mental Status Examination Patient is in hospital gown. She is fairly well groomed and appears to be attending to basic hygiene. She is awake and alert and oriented to person at least. I did endeavor to perform more extensive mental status testing, but I could not do so, possibly due to the language barrier and difficulty with the computer-based plug paster. No motor abnormalities noted. Speech is within normal limits for rate, tone and volume. Difficult to assess language and fund of knowledge. Affect seems fairly full and reactive. Difficult to assess thought process and thought content although the patient does not articulate any frankly delusional material, nor does she verbalize any suicidal or homicidal ideation at this time. Insight and judgment are unclear. Previous Suicide Attempts: Yes Assessment & Plan Problem List: (1) Adjustment disorder ICD Code: F43.20 Assessment & Plan This is an 81-year-old female with psychiatric history as detailed above who presents in transfer from the clinical decision unit under a Kauffman act. Patient was evaluated by the consulting psychiatrist in the CDU who was apparently concerned about some degree of depressive diathesis. My examination is fairly limited today for the reasons noted above, but from what I can gather the patient was upset because of an interaction with a surgery nurse. Unclear if there is any ongoing depressive disorder at play. I will plan to retain the patient on the inpatient unit for further observation and stabilization at necessary. Admit inpatient. Kauffman act remains in place. Consult the hospitalist to assist with medical management. I will start sliding scale insulin and Accu- Cheks in the meantime. Diabetic diet. Trend BMP. PT/OT eval. Dr. Marsh did get a good example and was planning to resume patient's Aricept, Namenda and Celexa, and I will continue these on the inpatient psychiatric unit. Low- dose Ativan as needed for anxiety. Vitals every shift. Counselor to see and obtain collateral. Disposition planning. Estimated length of stay: 3-5 days. Discharge Planning Pending further evaluation Request HC Surrog/Guard Advoc?: No (not at this time) Problem Qualifiers (1) Adjustment disorder: Qualified Code: F43.20 - Adjustment disorder, unspecified type John Rutherford MD Jan 26, 2017 10:14
[2017-01-26] MEDS: INSULIN ASPART SUPPLEMENTAL SCALE SQ SCH ×3 (11:00→20:04)
[2017-01-26] MEDS ORDERED: INSULIN ASPART SUPPLEMENTAL SCALE SQ SCH (11:00)
[2017-01-26] MEDS ORDERED: PILL SPLITTER OTHER PRN (13:15)
--- NOTE | 2017-01-26 15:35 | PD.CONS ---
[facility] By [facility]ry team Reason for Consult Medical management Primary Care Physician Unknown Diagnoses: History of Present Illness Patient is an 81-year-old female with primary medical history of diabetes, HTN who came into the hospital without any specific complaint as per report. In the ED report, patient has altered mental status unable to obtain any information. Patient was found to have encephalopathy secondary to urinary tract infection and was given Rocephin x3 days, urine culture did not grow anything, with clinical improvement. She is now admitted to inpatient psychiatry and further evaluation. Consulted for medical management. Patient seen and examined today. [place]-speaking. Bow Making Machine Operator use [email or web address], diplomatic interpreter was Jensen #[id number]. Patient states she is doing well. She is feeling happy. States that she has recurrent urinary tract infection and she lives alone if she doesn't feel good she calls an ambulance to go to the hospital. She also verified that she has diabetes and has been taking insulin in the evening and 3 times a day injections. Patient states she is not on metformin. Otherwise, denies pain and discomfort. Denies SOB/ dyspnea. Denies chest pain, palpitations, headaches, dizziness. Denies fevers, chills, n/ v/d. Denies dysuria, urgency, frequency, hematuria. Review of Systems Except as stated in HPI: all other systems reviewed are Neg Past Family Social History Allergies: Coded Allergies: No Known Allergies (Unverified , 01/23/17) Past Medical History DM 2 Hypothyroidism HTN Anxiety/depression/mood disorder History of breast cancer Past Surgical History Left breast lumpectomy Cholecystectomy Hysterectomy Reported Medications Reported Meds & Active Scripts Active Novolog Inj (Insulin Aspart) 100 Unit/Ml Inj 1 Unit SQ ACHS SLIDING SCALE 30 Days Active Ordered Medications Current Medications Medications (Trade) Dose Ordered Sig/Yaneli Route Start Time Stop Time Status Last Admin (Ativan) 0.5 mg Q12H PRN PO 01/25/17 19:00 (Ativan Inj) 0.5 mg Q12H PRN IM 01/25/17 19:00 (Tylenol) 650 mg Q4H PRN PO 01/25/17 19:00 (Milk Of Magnesia Liq) 30 ml DAILY PRN PO 01/25/17 19:00 (Mag-Al Plus Susp Liq) 30 ml Q6H PRN PO 01/25/17 19:00 (Habitrol 21 Mg Patch.24 Hr) 1 patch DAILY T-DERMAL 01/25/17 19:00 Miscellaneous Information 1 HS T-DERMAL 01/25/17 21:00 (D50w (Vial) Inj) 25 ml UNSCH PRN IV PUSH 01/26/17 08:45 (Glucagon Inj) 1 mg UNSCH PRN OTHER 01/26/17 08:45 (Levemir Inj) 12 units Q12HR SQ 01/26/17 09:00 01/26/17 09:33 (Aricept) 5 mg HS PO 01/26/17 21:00 (Namenda) 5 mg DAILY PO 01/27/17 09:00 (CeleXA) 10 mg DAILY PO 01/27/17 09:00 (Pill Splitter) 1 ea UNSCH PRN OTHER 01/26/17 13:15 Family History Hospital review of records, cancer in the family Social History Denies alcohol use Denies tobacco use Denies illicit drug use Physical Exam Vital Signs Vital Signs Date Time Temp Pulse Resp B/P Pulse Ox O2 Delivery O2 Flow Rate FiO2 01/26/17 05:25 98.5 80 16 167/80 98 01/25/17 18:44 85 16 164/82 98 Physical Exam GENERAL: This is a well-nourished, well-developed patient, in no apparent distress. SKIN: No rashes, ecchymoses or lesions. Cool and dry. HEAD: Atraumatic. Normocephalic. No temporal or scalp tenderness. EYES: Pupils equal round and reactive. No scleral icterus. No injection or drainage. ENT: Nose without bleeding. Throat without erythema. Uvula midline. Airway patent. NECK: Trachea midline. No JVD or lymphadenopathy. Supple, nontender, no meningeal signs. CARDIOVASCULAR: Regular rate and rhythm without murmurs, gallops, or rubs. RESPIRATORY: Clear to auscultation. Breath sounds equal bilaterally. No wheezes , rales, or rhonchi. GASTROINTESTINAL: Abdomen soft, non-tender, nondistended. Positive bowel sounds. MUSCULOSKELETAL: Extremities without clubbing, cyanosis, or edema. NEUROLOGICAL: Awake and alert. Oriented to self, place. Confusion. Motor and sensory grossly within normal limits. Normal speech. Laboratory Laboratory Tests Test 01/26/17 06:58 Sodium Level 140 Potassium Level 4.2 Chloride Level 105 Carbon Dioxide Level 25.9 Anion Gap 9 Blood Urea Nitrogen 14 Creatinine 1.04 Estimat Glomerular Filtration 51 Rate Random Glucose 300 Calcium Level 8.4 Triglycerides Level 80 Cholesterol Level 129 LDL Cholesterol 59 HDL Cholesterol 54.1 Cholesterol/HDL Ratio 2.38 Result Diagram: 01/26/17 0658 Assessment and Plan Problem List: (1) Altered mental status ICD Code: R41.82 Status: Resolved (2) UTI (urinary tract infection) ICD Code: N39.0 Status: Acute (3) DM type 2 (diabetes mellitus, type 2) ICD Code: E11.9 Status: Chronic (4) HTN (hypertension) ICD Code: I10 Status: Chronic Assessment and Plan Patient is an 81-year-old female with primary medical history of diabetes, HTN who came into the hospital without any specific complaint as per report. In the ED report, patient has altered mental status unable to obtain any information. Patient was found to have encephalopathy secondary to urinary tract infection and was given Rocephin x3 days, urine culture did not grow anything, with clinical improvement. She is now admitted to inpatient psychiatry and further evaluation. Consulted for medical management. Anxiety/depression - managed by psychiatry team DM 2 - Patient is on insulin at home. Levemir 30 units daily at bedtime, 15 units preprandial 3 times a day. - Patient started on Levemir 12 units every 12 for now, insulin sliding scale. We'll do 5 units preprandial 3 times a day. - Hemoglobin A1c 10.9 - Diabetic diet - Monitor for hypoglycemia. Adjust medication to go home dose. HTN - Will restart on losartan 50 mg daily - Monitor BP trend AK I, pre-renal - Creatinine 1.04 - Avoid nephrotoxins - Encourage by mouth fluid intake Hypothyroidism - Check TSH - Restart patient medication levothyroxine 112 g DVT prop ambulatory Thank you for this consultation. We will follow patient with you. Written by Gama Roberts, acting as scribe for Dr. Oates on 01/26/17 at 15: 27. This note was transcribed by scribe [TOBIN Baptiste]. I, Dr. Abel Oates personally performed the history, physical exam, and medical decision making; and confirmed the accuracy of the information in the transcribed note. Authenticated by Dr. Abel Oates on 01/26/17 at 1600. Code Status Full code Discussed Condition With Patient, nursing Gama Krause Jan 26, 2017 15:35 Abel Oates MD Jan 26, 2017 17:08
[2017-01-26 15:53] LABS: HEMOGLOBIN A1b 2.8 %; HEMOGLOBIN Ao 76.5 %; HEMOGLOBIN LA1C 3.5 %; HEMOGLOBIN P3 5.1 %
[2017-01-26 18:00] VITALS: BP 164/72; PULSE 79; RESP 17; TEMP 97.8; O2SAT 99
[2017-01-26] MEDS: DONEPEZIL HCL 5 MG TAB PO SCH (20:20)
[2017-01-26] MEDS: REMOVE OLD NICODERM (NICOTINE) PATCH T-DERMAL SCH (20:21)
[2017-01-27 06:13] VITALS: BP 149/67; PULSE 76; RESP 18; TEMP 98.6; O2SAT 97
[2017-01-27] MEDS: INSULIN ASPART SUPPLEMENTAL SCALE SQ SCH ×4 (06:32→20:24)
[2017-01-27] MEDS: MEMANTINE HCL 5 MG TAB PO SCH (08:32)
[2017-01-27] MEDS: CITALOPRAM HYDROBROMIDE 20 MG TAB PO SCH (08:32)
[2017-01-27] MEDS: NICOTINE 21 MG/24 HR PATCH T-DERMAL SCH (08:32)
[2017-01-27] MEDS: INSULIN DETEMIR 100 UNITS/ML VIAL SQ SCH ×2 (08:33→20:53)
[2017-01-27 09:14] LABS: BICARBONATE 22.1 MEQ/L (21.0-32.0); POTASSIUM 3.8 MEQ/L (3.5-5.1)
[2017-01-27] MEDS: INSULIN ASPART 1,000 UNITS/10 ML VIAL SQ SCH ×2 (11:28→16:24)
--- NOTE | 2017-01-27 13:56 | HHI.PYPN ---
Subjective Remarks Patient seen and examined with counselor. Chart reviewed. Case discussed with nursing staff. No behavioral issues noted. We have been unable to obtain the services of an in-person maintenance supervisor 2nd shift. We have tried once again today to utilize a computer-based maintenance supervisor 2nd shift, Rupert and her having better luck. On my examination today, the patient admits to feeling somewhat distressed because her daughter in [place] is having some sort of medical emergency. She denies any suicidal or homicidal ideation however, citing her mormonism beliefs. She is noted to be smiling and laughing with the counselor. She denies any audiovisual hallucinations, and I can detect no evident delusional material. She does admit to threatening suicide once before in the setting of acute distress but denies any history of actual suicide attempts. She is agreeable to remaining on the unit for observation after discussion of the voluntary status. No reported side effects from medications. Review of Systems ROS Limitations: Language Barrier Except as stated in HPI: all other systems reviewed are Neg Objective Alert: Yes Leroy: Person, Place, Date Mood: Calm Affect: Euthymic Memory Intact: Comment (not formally assessed but seems generally intact) Hallucinations: Other (no AVH) Delusions: No Delusion Type: Other (no delusions) Suicidal: Ideation (denies suicidal ideation) Homicidal: Ideation (no homicidal ideation) Insight/Judgment Fair Remarks No motor abnormalities noted. Thought process seems fairly linear. Speech is appropriate and logical. Grooming and hygiene are good. Labs Test 01/27/17 07:42 Sodium Level 138 MEQ/L Potassium Level 3.8 MEQ/L Chloride Level 106 MEQ/L Carbon Dioxide Level 22.1 MEQ/L Anion Gap 10 MEQ/L Blood Urea Nitrogen 15 MG/DL Creatinine 0.91 MG/DL Estimat Glomerular Filtration 59 ML/MIN Rate Random Glucose 197 MG/DL Calcium Level 8.7 MG/DL Labs reviewed. Vitals/IOs Vital Signs Date Time Temp Pulse Resp B/P Pulse Ox O2 Delivery O2 Flow Rate FiO2 01/27/17 06:13 98.6 76 18 149/67 97 Intake and Output 01/26/17 01/26/17 01/27/17 08:00 16:00 00:00 Intake Total 940 ml 240 ml Balance 940 ml 240 ml Assessment & Plan Problem List: (1) Adjustment disorder ICD Code: F43.20 Assessment & Plan Continue Celexa as ordered. Continue other psychotropics as ordered. Continue to monitor on the inpatient psychiatric unit. Counselor continuing to try to obtain collateral. Hospitalist foreign legal consultant input noted and appreciated. Continue other medications and care as ordered. Patient may sign voluntary and consent for medications. Justification for Cont. Inpt. Monitoring for impairments in safety. No evidence of any such impairments so far. Discharge Planning Pending outcome of observation but anticipate discharge home shortly after the weekend barring some clinical deterioration. Request HC Surrog/Guard Advoc?: No Problem Qualifiers (1) Adjustment disorder: Qualified Code: F43.20 - Adjustment disorder, unspecified type John Rutherford MD Jan 27, 2017 13:56
[2017-01-27 18:42] VITALS: BP 127/63; PULSE 78; RESP 17; TEMP 97.8; O2SAT 100
[2017-01-27] MEDS: DONEPEZIL HCL 5 MG TAB PO SCH (20:48)
[2017-01-27] MEDS: REMOVE OLD NICODERM (NICOTINE) PATCH T-DERMAL SCH (20:53)
[2017-01-28 06:14] VITALS: BP 145/66; PULSE 75; RESP 16; TEMP 98.1; O2SAT 97
[2017-01-28] MEDS: INSULIN ASPART SUPPLEMENTAL SCALE SQ SCH ×2 (06:30→11:00)
[2017-01-28] MEDS: INSULIN ASPART 1,000 UNITS/10 ML VIAL SQ SCH ×2 (08:00→11:27)
[2017-01-28] MEDS: CITALOPRAM HYDROBROMIDE 20 MG TAB PO SCH (08:39)
[2017-01-28] MEDS: MEMANTINE HCL 5 MG TAB PO SCH (08:39)
[2017-01-28] MEDS: INSULIN DETEMIR 100 UNITS/ML VIAL SQ SCH (08:40)
[2017-01-28] MEDS: NICOTINE 21 MG/24 HR PATCH T-DERMAL SCH (09:00)
[2017-01-28] MEDS: REMOVE OLD NICODERM (NICOTINE) PATCH T-DERMAL SCH (11:14)
--- NOTE | 2017-01-28 12:09 | HHI.FF ---
Face to Face Verification Diagnosis: (1) Adjustment disorder (2) Limited mobility Physical Therapy Order: Evaluate and Treat, Improve ambulation, Strength and gait training Occupational Therapy Order: Evaluate and Treat Home Health Nursing Order: Signs/symptoms of disease process Senior Network Security Engineer Order: To Evaluate: Living conditions/environment, Support services Order: To Provide: Long range planning, Community services I have seen patient Keyanna Gonsales on 01/28/17. My clinical findings support the need for the requested home health care services because: Need for psychosocial assistance I certify that my clinical findings support that this patient is homebound because: Need for psychosocial assistance John Rutherford MD Jan 28, 2017 12:09
[2017-01-28] MEDS ORDERED: CELE20TA PO (12:48)
[2017-01-28] MEDS ORDERED: NOVOLOGP2 SQ (12:48)
[2017-01-28] MEDS ORDERED: ARIC5TAB PO (12:48)
[2017-01-28] MEDS ORDERED: NAME5TAB2 PO (12:48)
[2017-01-28] MEDS ORDERED: LEVEMIR SQ (12:48)
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
== END 2017-01-28 16:30 | disposition home health service (06) | DRG 882 ==
LOC: H250 16:38
PROVIDERS: ADMIT Psychiatry & Neurology Psychiatry; ATTEND Psychiatry & Neurology Psychiatry
DX: F43.20 Adjustment disorder, unspecified (principal); E11.9 Type 2 diabetes mellitus without complications; Z79.4 Long term (current) use of insulin; I10 Essential (primary) hypertension; N28.9 Disorder of kidney and ureter, unspecified; Z87.440 Personal history of urinary (tract) infections; E03.9 Hypothyroidism, unspecified; Z85.3 Personal history of malignant neoplasm of breast
CPT/HCPCS: 80048; 80061; 82948; 83036; J1815

== ENCOUNTER 2017-10-09 21:06 | Observation (INO) | payer OTHER, MEDICAID ==
[~2017-10-09] VITALS: Ht 162.6 cm; Wt 75.0 kg
[~2017-10-09 21:06] MED LIST changes: +ARIC5TAB PO; +CELE20TA PO; -HUMA100I SC; -LEVO.112 PO; -LOSA50TA PO; +NAME5TAB2 PO; +NOVOLOGP2 SQ; -NOVOLOGSS SQ; -QUET200 PO; -VENL75CA44 PO
[2017-10-09 21:31] VITALS: BP 156/74; PULSE 84; RESP 20; TEMP 97.7; O2SAT 100
[2017-10-09 21:39] VITALS: RESP 18; O2SAT 100
--- NOTE | 2017-10-09 21:43 | PD ---
HPI Chief Complaint: Diabetic Time Seen by Provider: 21:27 Travel History International Travel<30 days: No Contact w/Intl Traveler<30days: No Traveled to known affect area: No History of Present Illness HPI 82-year-old female presents to the emergency department from independent assisted living facility by EMS transport after noting to have altered mentation and elevated blood sugar. Assisted living facility provided minimal information to EMS reportedly patient is diabetic other information is not known. Medical record is reviewed and identified patient has history of hypertension diabetes dementia and anxiety disorder with history of urinary tract infections and altered mentation. Patient's history is also provided by son who calls and speaks with Cordell Kuhn PA-C and relays same history of diabetes hypertension dementia recurrent UTIs with altered mentation anxiety lives in an independent assisted living facility and son is attempting to get patient transferred to a assisted-living facility with dementia unit. Patient is noncompliant with medications according to sons report and son is patient's power of energy attorney. Patient here provided no useful information speaks Peruvian only and when being spoken to in Peruvian only says " I, I, I" and repeatedly states "I don't know". PFSH Past Medical History Narrative Medical Anxiety depression dyslipidemia hypertension diabetes dementia hypothyroidism; nursing notes reviewed medical record reviewed Blood Disorders: No Anxiety: Yes Depression: Yes Heart Rhythm Problems: No Cancer: Yes (breast cancer) Cardiovascular Problems: Yes (HTN) High Cholesterol: Yes Chemotherapy: No Chest Pain: No Congestive Heart Failure: No Diabetes: Yes Endocrine: Yes Genitourinary: No Headaches: Yes Hypertension: Yes Implanted Vascular Access Dvce: No Musculoskeletal: No Neurologic: Yes (possible tia/cva) Psychiatric: Yes (depression, anxiety) Reproductive: No Respiratory: No Radiation Therapy: No Seizures: No Thyroid Disease: Yes Past Surgical History Other Surgery: Yes Social History Alcohol Use: No Tobacco Use: No Substance Use: No Allergies-Medications (Allergen,Severity, Reaction): Coded Allergies: No Known Allergies (Verified Allergy, Unknown, 10/10/17) Reported Meds & Prescriptions Reported Meds & Active Scripts Active Namenda (Memantine) 5 Mg Tab 5 Mg PO DAILY 15 Days Levemir Inj (Insulin Detemir) 1,000 unit/ 10 ML Vial 12 Units SQ Q12HR 15 Days Pharmacist: Please emphasize to patient that this replaces her home insulin regimen. Novolog Inj (Insulin Aspart) 1,000 Unit/10 Ml Vial 5 Units SQ TIDAC 15 Days Pharmacist: Please emphasize to patient that this replaces her home insulin regimen. Celexa (Citalopram Hydrobromide) 20 Mg Tab 10 Mg PO DAILY 15 Days Review of Systems ROS Limitations: Clinical Condition, Altered Mental Status, Uncooperative, Language Barrier (Peruvian-speaking translation provided by Cordell MOREL and son by phone, Juan Fry), Poor Historian Physical Exam Narrative GENERAL: Well-developed agitated female in no respiratory distress GCS 14confused SKIN: Warm and dry. HEAD: Normocephalic. EYES: No scleral icterus. No injection or drainage. NECK: Supple, trachea midline. No JVD or lymphadenopathy. CARDIOVASCULAR: Regular rate and rhythm without murmurs, gallops, or rubs. RESPIRATORY: Breath sounds equal bilaterally. No accessory muscle use. GASTROINTESTINAL: Abdomen soft, non-tender, nondistended. MUSCULOSKELETAL: No cyanosis, or edema. BACK: Nontender without obvious deformity. No CVA tenderness. Data Data Last Documented VS Vital Signs Date Time Temp Pulse Resp B/P (MAP) Pulse Ox O2 Delivery O2 Flow Rate FiO2 10/09/17 23:02 87 20 153/74 (100) 100 Room Air 10/09/17 21:31 97.7 Orders Orders Electrocardiogram (10/09/17 21:34) Complete Blood Count With Diff (10/09/17 21:34) Comprehensive Metabolic Panel (10/09/17 21:34) Magnesium (Mg) (10/09/17 21:34) Beta Hydroxybutyrate (Acetone) (10/09/17 21:34) Lactic Acid (10/09/17 21:34) Urinalysis - C+S If Indicated (10/09/17 21:34) Blood Culture (10/09/17 21:34) Chest, Single Ap (10/09/17 21:34) Blood Glucose (10/09/17 21:34) Ecg Monitoring (10/09/17 21:34) Iv Access Insert/Monitor (10/09/17 21:34) Oximetry (10/09/17 21:34) NPO (10/09/17 21:34) Sodium Chloride 0.9% Flush (Ns Flush) (10/09/17 21:45) Troponin I (10/09/17 21:34) Lipase (10/09/17 21:34) Sodium Chlorid 0.9% 500 Ml Inj (Ns 500 M (10/09/17 21:45) Cath For Specimen (10/09/17 21:34) Sodium Chlorid 0.9% 500 Ml Inj (Ns 500 M (10/09/17 22:30) Blood Glucose (10/09/17 22:28) Insulin Human Regular Inj (Novolin R Inj (10/09/17 23:00) Ct Brain W/O Iv Contrast(Rout) (10/09/17 ) Bedside Glucose AVA.CSUGAR (10/09/17 23:52) Blood Glucose Goal (Criteria) (10/09/17 23:52) Hypoglycemia 70 Mg/Dl Or < (10/09/17 23:52) Notify Dr: Other (10/09/17 23:52) Dextrose 50% In [place]ana (Vial) Inj (D50w (Vi (10/10/17 00:00) Glucagon Inj (Glucagon Inj) (10/10/17 00:00) Insulin Aspart Supplemtl Scale (Novolog (10/10/17 08:00) Place In Observation (10/09/17 ) Vital Signs (Adult) Q4H (10/09/17 23:52) Activity Oob With Assistance (10/09/17 23:52) Intake + Output AVA.QSHIFT (10/09/17 23:52) Sodium Chlor 0.9% 1000 Ml Inj (Ns 1000 M (10/09/17 23:52) Sodium Chloride 0.9% Flush (Ns Flush) (10/10/17 00:00) Sodium Chloride 0.9% Flush (Ns Flush) (10/10/17 09:00) Ondansetron Inj (Zofran Inj) (10/10/17 00:00) Comprehensive Metabolic Panel (10/10/17 06:00) Complete Blood Count With Diff (10/10/17 06:00) Pt Request For Service (10/09/17 23:52) Case Management Consult (10/09/17 23:52) Scd Bilateral/Knee High AVA.BID (10/09/17 23:52) Mario Bilateral/Knee High AVA.QSHIFT (10/09/17 23:54) Acetaminophen (Tylenol) (10/10/17 00:00) Acetamin-Hydrocod 325-5 Mg ([place] 5-325 (10/10/17 00:00) Acetamin-Hydrocod 325-10 Mg ([place] 10-32 (10/10/17 00:00) Docusate Sodium-Senna (Leticia-Colace) (10/10/17 09:00) Magnesium Hydroxide Liq (Milk Of Magnesi (10/10/17 00:00) Sennosides (Senokot) (10/10/17 00:00) Bisacodyl Supp (Dulcolax Supp) (10/10/17 00:00) Lactulose Liq (Lactulose Liq) (10/10/17 00:00) Citalopram (Celexa) (10/10/17 09:00) Insulin Detemir Inj (Levemir Inj) (10/10/17 09:00) Memantine (Namenda) (10/10/17 09:00) Admit Order (Ed Use Only) (10/09/17 ) Clinical Faculty / Telemetry AVA.Q8H (10/09/17 23:56) Diet 1999 Ada Cons Carb (10/10/17 Breakfast) Activity Oob With Assistance (10/09/17 23:56) Notify Dr: Other (10/09/17 23:56) Labs Laboratory Tests Test 10/09/17 21:20 10/09/17 21:40 10/09/17 22:02 Lactic Acid Level 3.6 mmol/L White Blood Count 8.7 TH/MM3 Red Blood Count 4.63 MIL/MM3 Hemoglobin 13.9 GM/DL Hematocrit 41.7 % Mean Corpuscular Volume 90.1 FL Mean Corpuscular Hemoglobin 30.0 PG Mean Corpuscular Hemoglobin Concent 33.3 % Red Cell Distribution Width 14.1 % Platelet Count 193 TH/MM3 Mean Platelet Volume 10.0 FL Neutrophils (%) (Auto) 52.6 % Lymphocytes (%) (Auto) 34.1 % Monocytes (%) (Auto) 7.2 % Eosinophils (%) (Auto) 3.8 % Basophils (%) (Auto) 2.3 % Neutrophils # (Auto) 4.6 TH/MM3 Lymphocytes # (Auto) 3.0 TH/MM3 Monocytes # (Auto) 0.6 TH/MM3 Eosinophils # (Auto) 0.3 TH/MM3 Basophils # (Auto) 0.2 TH/MM3 CBC Comment AUTO DIFF Differential Comment AUTO DIFF CONFIRMED Platelet Estimate NORMAL Platelet Morphology Comment NORMAL Red Cell Morphology Comment NORMAL Blood Urea Nitrogen 18 MG/DL Creatinine 1.55 MG/DL Random Glucose 539 MG/DL Total Protein 8.2 GM/DL Albumin 4.0 GM/DL Calcium Level 9.3 MG/DL Magnesium Level 2.0 MG/DL Alkaline Phosphatase 115 U/L Aspartate Amino Transf (AST/SGOT) 12 U/L Alanine Aminotransferase (ALT/SGPT) 18 U/L Total Bilirubin 0.5 MG/DL Sodium Level 128 MEQ/L Potassium Level 4.5 MEQ/L Chloride Level 94 MEQ/L Carbon Dioxide Level 23.6 MEQ/L Anion Gap 10 MEQ/L Estimat Glomerular Filtration Rate 32 ML/MIN Troponin I LESS THAN 0.02 NG/ML Lipase 224 U/L B-Hydroxybutyrate 0.26 MMOL/L Urine Color COLORLESS Urine Turbidity CLEAR Urine pH 7.0 Urine Specific [place] 1.008 Urine Protein NEG mg/dL Urine Glucose (UA) 1000 mg/dL Urine Ketones NEG mg/dL Urine Occult Blood SMALL Urine Nitrite NEG Urine Bilirubin NEG Urine Urobilinogen LESS THAN 2.0 MG/DL Urine Leukocyte Esterase NEG Urine RBC 3 /hpf Urine WBC LESS THAN 1 /hpf Urine Squamous Epithelial Cells <1 /hpf Microscopic Urinalysis Comment CULT NOT INDICATED MDM Medical Decision Making Medical Screen Exam Complete: Yes Emergency Medical Condition: Yes Medical Record Reviewed: Yes Interpretation(s) EKG normal sinus rhythm rate 81 no chest elevation injury pattern or ectopy noted Lactic acid: 3.6, elevated BHB acid: 0.26, not elevated Troponin I less than 0.02, not elevated Last Impressions Chest X-Ray 10/09/172133 Signed Impressions: Service Date/Time: Monday, October 09, 2017 21:43 - CONCLUSION: No acute disease. Walter Acevedo MD CBC & BMP Diagram 10/09/17 21:40 Total Protein 8.2, Albumin 4.0, Calcium Level 9.3, Magnesium Level 2.0, Alkaline Phosphatase 115, Aspartate Amino Transf (AST/SGOT) 12 L, Alanine Aminotransferase (ALT/SGPT) 18, Total Bilirubin 0.5 Vital Signs Date Time Temp Pulse Resp B/P (MAP) Pulse Ox O2 Delivery O2 Flow Rate FiO2 10/09/17 21:39 18 100 Room Air 10/09/17 21:37 87 16 100 Room Air 10/09/17 21:31 97.7 84 20 156/74 (101) 100 CT brain w/o: no acute process per reading radiologist Differential Diagnosis Altered mental status, sepsis, hyperglycemia, HHS, metabolic encephalopathy, ACS , TIA Narrative Course Patient placed on child monitor with continuous pulse oximetry IV access obtained specimens collected and sent for resulting EKG performed shows sinus rhythm with no acute ST elevation or injury pattern; bedside glucose 529 Patient given 500 cc bolus of normal saline @ 22:44 serum glucose 539; patient administered regular insulin 8 units SC; UA glucosuria no ketones; LA elevated 3.6; patient much calmer and more relaxed although quickly becomes agitated with minimal specimen collection. Blood sugar coming down nicely with subcutaneous insulin; CT brain noncontrast reveals no acute abnormalities Patient's case discussed with on-call [facility] MD for admission Critical Care Narrative Aggregate critical care time was 30 minutes. Time to perform other separately billable procedures was not included in the critical care time. My time did not include minutes spent treating any other patients simultaneously or on activities that did not directly contribute to the patient's treatment. The services I provided to this patient were to treat and/or prevent clinically significant deterioration that could result in: Sepsis, hyperosmolar hyperglycemic coma, I provided critical care services requiring my management, as noted below: Chart data review, documentation time, medication orders and management, vital sign assessments/reviewing monitor data, ordering and reviewing lab tests, ordering and interpreting/reviewing x-rays and diagnostic studies, care of the patient and discussion of the patient with the admitting physicians. Physician Communication Physician Communication discussed with Dr Parry Diagnosis Primary Impression: Uncontrolled type 2 DM with hyperosmolar nonketotic hyperglycemia Additional Impression: Dementia Admitting Information Admitting Physician Requests: Admit Zita Torres MD Oct 09, 2017 21:43
[2017-10-09] MEDS ORDERED: SODIUM CHLORID 0.9% 500 ML INJ 500 ML IV ONE ×2 (21:45→22:30)
[2017-10-09] MEDS ORDERED: SODIUM CHLORIDE 0.9% FLUSH 10 ML FLUSH IVF PRN (21:45)
--- NOTE | 2017-10-09 21:58 | RADRPT ---
EXAM DATE/TIME: 10/09/2017 21:43 [facility] COMPARISON: CHEST SINGLE AP, January 23, 2017, 4:25. INDICATIONS : Short of Breath MEDICAL HISTORY : Hypertension. Diabetes mellitus type 2. Carcinoma, breast. SURGICAL HISTORY : None. ENCOUNTER: Initial ACUITY: 1 day PAIN SCORE: Non-responsive. LOCATION: Bilateral chest FINDINGS: A single view of the chest demonstrates the lungs to be symmetrically aerated without evidence of mas s, infiltrate or effusion. The cardiomediastinal contours are unremarkable. Osseous structures are intact. CONCLUSION: No acute disease. Walter Acevedo MD on October 09, 2017 at 21:55 Board Certified Radiologist. This report was verified electronically.
[2017-10-09 22:20] LABS: AUTOMATED NEUTROPHIL # 4.6 TH/MM3 (1.8-7.7); BASOPHIL # 0.2 TH/MM3 (0-0.2); BASOPHIL % 2.3 % (0.0-2.0); EOSINOPHIL # 0.3 TH/MM3 (0-0.4); EOSINOPHIL % 3.8 % (0.0-4.0); HEMATOCRIT 41.7 % (35.0-46.0); HEMOGLOBIN 13.9 GM/DL (11.6-15.3); LYMPH % 34.1 % (9.0-44.0); MEAN CELL VOLUME 90.1 FL (80.0-100.0); MEAN CORPUSCULAR HGB CONC 33.3 % (32.0-36.0); MONO % 7.2 % (0.0-8.0); MONOCYTE # 0.6 TH/MM3 (0-0.9); NEUT % 52.6 % (16.0-70.0); PLATELET COUNT 193 TH/MM3 (150-450); RED BLOOD COUNT 4.63 MIL/MM3 (4.00-5.30); RED CELL DISTRIBUTION WIDTH 14.1 % (11.6-17.2); WHITE BLOOD COUNT 8.7 TH/MM3 (4.0-11.0)
[2017-10-09 22:26] LABS: BILIRUBIN, URINE NEG (NEG); BLOOD, URINE SMALL (NEG); GLUCOSE,URINE 1000 mg/dL (NEG); KETONE, URINE NEG (NEG); NITRITE,URINE NEG (NEG); SQUAMOUS EPITHELIAL CELL URINE <1 /hpf (0-5); URINE COLOR COLORLESS (YELLW/STRAW); URINE LEUKOCYTE ESTERASE NEG (NEG)
[2017-10-09] MEDS ORDERED: INSULIN HUMAN REGULAR 1,000 UNITS/10 ML VIAL SQ ONE ×2 (22:30→23:00)
[2017-10-09 22:42] LABS: ALKALINE PHOSPHATASE 115 U/L (45-117); ALT (GPT) 18 U/L (10-53); AST (GOT) 12 U/L (15-37); BICARBONATE 23.6 MEQ/L (21.0-32.0); BLOOD UREA NITROGEN 18 MG/DL (7-18); CALCIUM 9.3 MG/DL (8.5-10.1); CHLORIDE 94 MEQ/L (98-107); CREATININE 1.55 MG/DL (0.50-1.00); GLOMERULAR FILTRATION RATE 32 ML/MIN (>89); LIPASE 224 U/L (73-393); SODIUM (NA) 128 MEQ/L (136-145); TOTAL BILIRUBIN ADULT 0.5 MG/DL (0.2-1.0); TOTAL PROTEIN 8.2 GM/DL (6.4-8.2); TROPONIN I LESS THAN 0.02 NG/ML (0.02-0.05)
[2017-10-09 22:44] LABS: GLUCOSE,RANDOM 539 MG/DL (74-106)
[2017-10-09 23:02] VITALS: BP 153/74; PULSE 87; RESP 20; O2SAT 100
--- NOTE | 2017-10-09 23:55 | HHI.HP ---
HPI Service [facility] Primary Care Physician Unknown Admission Diagnosis Diagnoses: (1) Encephalopathy Diagnosis: Principal (2) Dementia Diagnosis: Principal (3) ANASTASIA (acute kidney injury) Diagnosis: Principal (4) DM (diabetes mellitus) Diagnosis: Principal Travel History International Travel<30 Days: No Contact w/Intl Traveler <30 Da: No Traveled to Known Affected Are: No History of Present Illness This is an 82-year-old Arabic-speaking female with PMH of Anxiety, Depression, HTN, Breast CA, DM, Recurrent UTI and Dementia who was sent to the ER from [facility] secondary to AMS and elevated BS. No records were sent w/ patient, therefore history significantly limited as pt is demented and confused. Some history obtained from pt's Son, who reports pt w/ h/o Dementia/Anxiety, currently living in [facility] however attempting to get her placed in Locked Dementia Unit. Reports pt is non-compliant w/ medications and has had episodes of profound confusion when she gets UTI. On arrival, BP 156/74, HR 84, O2 sat 100% on RA, Afebrile. CBC unremarkable. Creatinine 1.55, previously 0.91 on 01/27/17. BS 539. Troponin negative. UA negative. CXR with no acute findings. CT Head negative. S/p IVF and Insulin in ER. Review of Systems Except as stated in HPI: all other systems reviewed are Neg ROS: 14 point review of systems otherwise negative. Past Family Social History Past Medical History PMH: Anxiety, Depression, HTN, Breast CA, DM, Recurrent UTI and Dementia Past Surgical History PAST SURGICAL HISTORY: Unknown Allergies: Coded Allergies: No Allergy Information Available (Unverified , 10/09/17) unable to obtain Family History PAST FAMILY HISTORY: Reviewed. No h/o DM or CAD Social History PAST SOCIAL HISTORY: Negative for alcohol, tobacco or drugs. Physical Exam Vital Signs Vital Signs Date Time Temp Pulse Resp B/P (MAP) Pulse Ox O2 Delivery O2 Flow Rate FiO2 10/09/17 23:02 87 20 153/74 (100) 100 Room Air 10/09/17 21:39 18 100 Room Air 10/09/17 21:37 87 16 100 Room Air 10/09/17 21:31 97.7 84 20 156/74 (101) 100 Physical Exam PE: GENERAL: Elderly female in no acute distress. Calm. Yells out loudly whenever BP cuff inflates. HEENT: PERRLA, EOMI. No scleral icterus or conjunctival pallor. No lid lag or facial droop. CARDIOVASCULAR: Regular rate and rhythm. No obvious murmurs to auscultation. No chest tenderness to palpation. RESPIRATORY: No obvious rhonchi or wheezing. Clear to auscultation. Breath sounds equal bilaterally. GASTROINTESTINAL: Abdomen soft, non-tender, nondistended. BS normal. MUSCULOSKELETAL: Extremities without clubbing, cyanosis, or edema. No obvious deformities. NEUROLOGICAL: Awake, alert. No focal neurologic deficits. Moving both upper and lower extremities spontaneously. Laboratory Laboratory Tests Test 10/09/17 21:20 10/09/17 21:40 10/09/17 22:02 Lactic Acid Level 3.6 White Blood Count 8.7 Red Blood Count 4.63 Hemoglobin 13.9 Hematocrit 41.7 Mean Corpuscular Volume 90.1 Mean Corpuscular Hemoglobin 30.0 Mean Corpuscular Hemoglobin Concent 33.3 Red Cell Distribution Width 14.1 Platelet Count 193 Mean Platelet Volume 10.0 Neutrophils (%) (Auto) 52.6 Lymphocytes (%) (Auto) 34.1 Monocytes (%) (Auto) 7.2 Eosinophils (%) (Auto) 3.8 Basophils (%) (Auto) 2.3 Neutrophils # (Auto) 4.6 Lymphocytes # (Auto) 3.0 Monocytes # (Auto) 0.6 Eosinophils # (Auto) 0.3 Basophils # (Auto) 0.2 CBC Comment AUTO DIFF Differential Comment AUTO DIFF CONFIRMED Platelet Estimate NORMAL Platelet Morphology Comment NORMAL Red Cell Morphology Comment NORMAL Blood Urea Nitrogen 18 Creatinine 1.55 Random Glucose 539 Total Protein 8.2 Albumin 4.0 Calcium Level 9.3 Magnesium Level 2.0 Alkaline Phosphatase 115 Aspartate Amino Transf (AST/SGOT) 12 Alanine Aminotransferase (ALT/SGPT) 18 Total Bilirubin 0.5 Sodium Level 128 Potassium Level 4.5 Chloride Level 94 Carbon Dioxide Level 23.6 Anion Gap 10 Estimat Glomerular Filtration Rate 32 Troponin I LESS THAN 0.02 Lipase 224 B-Hydroxybutyrate 0.26 Urine Color COLORLESS Urine Turbidity CLEAR Urine pH 7.0 Urine Specific [place] 1.008 Urine Protein NEG Urine Glucose (UA) 1000 Urine Ketones NEG Urine Occult Blood SMALL Urine Nitrite NEG Urine Bilirubin NEG Urine Urobilinogen LESS THAN 2.0 Urine Leukocyte Esterase NEG Urine RBC 3 Urine WBC LESS THAN 1 Urine Squamous Epithelial Cells <1 Microscopic Urinalysis Comment CULT NOT INDICATED Date/Time Source Procedure Growth Status 10/09/17 22:02 Blood Peripheral Aerobic Blood Culture Pending Received 10/09/17 22:02 Blood Peripheral Anaerobic Blood Culture Pending Received Result Diagram: 10/09/17213910/09/172139 Caprini VTE Risk Assessment Caprini VTE Risk Assessment: No/Low Risk (score <= 1) Caprini Risk Assessment Model Point Value = 1 Point Value = 2 Point Value = 3 Point Value = 5 Age 41-60 Minor surgery BMI > 25 kg/m2 Swollen legs Varicose veins or History of unexplained or recurrent spontaneous Oral contraceptives or hormone replacement Sepsis (< 1 month) Serious lung disease, including pneumonia (< 1 month) Abnormal pulmonary function Acute myocardial infarction Congestive heart failure (< 1 month) History of inflammatory bowel disease Medical patient at bed rest Age 61-74 Arthroscopic surgery Major open surgery (> 45 min) Laparoscopic surgery (> 45 min) Malignancy Confined to bed (> 72 hours) Immobilizing plaster cast Central venous access Age >= 75 History of VTE Family history of VTE Factor V Leiden Prothrombin [id number] Lupus anticoagulant Anticardiolipin antibodies Elevated serum homocysteine Heparin-induced thrombocytopenia Other congenital or acquired thrombophilia Stroke (< 1 month) Elective arthroplasty Hip, pelvis, or leg fracture Acute spinal cord injury (< 1 month) Prophylaxis Regimen Total Risk Factor Score Risk Level Prophylaxis Regimen 0-1 Low Early ambulation 2 Moderate Order ONE of the following: *Sequential Compression Device (SCD) *Heparin 5000 units SQ BID 3-4 Higher Order ONE of the following medications: *Heparin 5000 units SQ TID *Enoxaparin/Lovenox 40 mg SQ daily (WT < 150 kg, CrCl > 30 mL/min) *Enoxaparin/Lovenox 30 mg SQ daily (WT < 150 kg, CrCl > 10-29 mL/min) *Enoxaparin/Lovenox 30 mg SQ BID (WT < 150 kg, CrCl > 30 mL/min) AND/OR *Sequential Compression Device (SCD) 5 or more Highest Order ONE of the following medications: *Heparin 5000 units SQ TID (Preferred with Epidurals) *Enoxaparin/Lovenox 40 mg SQ daily (WT < 150 kg, CrCl > 30 mL/min) *Enoxaparin/Lovenox 30 mg SQ daily (WT < 150 kg, CrCl > 10-29 mL/min) *Enoxaparin/Lovenox 30 mg SQ BID (WT < 150 kg, CrCl > 30 mL/min) AND *Sequential Compression Device (SCD) Assessment and Plan Problem List: (1) Encephalopathy ICD Code: G93.40 - Encephalopathy, unspecified (2) Dementia ICD Code: F03.90 - Unspecified dementia without behavioral disturbance Status: Acute (3) ANASTASIA (acute kidney injury) ICD Code: N17.9 - Acute kidney failure, unspecified (4) DM (diabetes mellitus) ICD Code: E11.9 - Type 2 diabetes mellitus without complications Assessment and Plan A/P: 1. Encephalopathy: sent to ER from [facility] secondary to AMS. Son reports more confused than baseline. CT Head w/ no acute findings, images reviewed by me. U /a negative for UTI, no other signs of infection, CXR negative, images reviewed by me. Admit for Observation. Neuro checks. PT for eval/tx. 2. Dementia: Severe. Son attempting to get placement in Locked Dementia Unit for worsening mental status. Resume home Namenda/Celexa. Case Management to assist w/ placement 3. ANASTASIA: Creatinine 1.55, previously 0.91 on 01/27/17. UA negative for UTI. IVF for hydration, repeat labs in a.m. 4. DM: Uncontrolled. Son reports patient is noncompliant with medications. BS 539, no evidence of acidosis. S/p Insulin in ER. Sliding scale w/ Accu- Cheks, resume home Insulin. 5. DVT Prophylaxis: SCD/Teds. 6. Social work for d/c planning as needed. 7. Labs/records/imaging reviewed by me, case discussed at length w/ ER physician. Valeria Parry MD Oct 09, 2017 23:55
[2017-10-10] VITALS (9 sets, daily range): BP systolic 139–164; BP diastolic 66–80; PULSE 79–89; RESP 16–17; TEMP 98.1–99.5; O2SAT 95–100
[2017-10-10] MEDS ORDERED: ACETAMINOPHEN/HYDROcodone 325 MG/5 MG TAB PO PRN
[2017-10-10] MEDS ORDERED: ONDANSETRON HCL 4 MG/2 ML VIAL IVP PRN
[2017-10-10] MEDS ORDERED: GLUCAGON 1 MG/ML VIAL OTHER PRN
[2017-10-10] MEDS ORDERED: LACTULOSE SYRUP 20 GM/30 ML CUP PO PRN
[2017-10-10] MEDS ORDERED: SENNOSIDES 8.6 MG TAB PO PRN
[2017-10-10] MEDS ORDERED: MAGNESIUM HYDROXIDE SUSP 30 ML CUP PO PRN
[2017-10-10] MEDS ORDERED: ACETAMINOPHEN 325 MG TAB PO PRN
[2017-10-10] MEDS ORDERED: ACETAMINOPHEN/HYDROcodone 325 MG/10 MG TAB PO PRN
[2017-10-10] MEDS ORDERED: BISACODYL 10 MG SUPP RECTAL PRN
[2017-10-10] MEDS ORDERED: SODIUM CHLORIDE 0.9% FLUSH 10 ML FLUSH IV FLUSH PRN
[2017-10-10] MEDS ORDERED: DEXTROSE 50% IN WATER 50 ML VIAL(D50) IV PUSH PRN
--- NOTE | 2017-10-10 00:02 | RADRPT ---
EXAM DATE/TIME: 10/09/2017 23:39 [facility] COMPARISON: CT BRAIN W/O CONTRAST, February 24, 2016, 23:16. INDICATIONS : Altered mental status. RADIATION DOSE: 56.35 CTDIvol (mGy) MEDICAL HISTORY : Cardiovascular disease. Hypertension. Diabetes mellitus type 2.Dementia Breast cancer SURGICAL HISTORY : None. ENCOUNTER: Initial ACUITY: 1 day PAIN SCALE: 0/10 LOCATION: cranial TECHNIQUE: Multiple contiguous axial images were obtained of the head. Using automated exposure control and adj ustment of the mA and/or kV according to patient size, radiation dose was kept as low as reasonably a chievable to obtain optimal diagnostic quality images. DICOM format image data is available electro nically for review and comparison. FINDINGS: Noncontrast axial head CT demonstrates the ventricles to be normal in size and configuration with a n ormal sulcal pattern. No acute intracranial hemorrhage, acute cortical infarction, mass or midline sh ift is seen. There is periventricular hypodensity compatible with chronic ischemic change slightly mo re than expected for patient this age. Posterior fossa structures are unremarkable. Bone windows are unremarkable. CONCLUSION: 1. No evidence of acute intracranial pathology. Chronic ischemic changes as above. John Alcantar MD on October 10, 2017 at 0:00 Board Certified Radiologist. This report was verified electronically.
[2017-10-10] MEDS: SODIUM CHLOR 0.9% 1000 ML INJ 1,000 ML IV SCH ×3 (00:07→19:52)
[2017-10-10 07:08] LABS: AUTOMATED NEUTROPHIL # 7.7 TH/MM3 (1.8-7.7); BASOPHIL # 0.1 TH/MM3 (0-0.2); BASOPHIL % 1.1 % (0.0-2.0); EOSINOPHIL # 0.4 TH/MM3 (0-0.4); EOSINOPHIL % 3.6 % (0.0-4.0); HEMATOCRIT 39.5 % (35.0-46.0); LYMPH % 19.9 % (9.0-44.0); LYMPHOCYTE # 2.2 TH/MM3 (1.0-4.8); MEAN CELL VOLUME 88.1 FL (80.0-100.0); MEAN CORPUSCULAR HEMOGLOBIN 29.1 PG (27.0-34.0); MEAN PLATELET VOLUME 9.8 FL (7.0-11.0); MONO % 6.5 % (0.0-8.0); MONOCYTE # 0.7 TH/MM3 (0-0.9); NEUT % 68.9 % (16.0-70.0); PLATELET COUNT 202 TH/MM3 (150-450); RED BLOOD COUNT 4.48 MIL/MM3 (4.00-5.30); RED CELL DISTRIBUTION WIDTH 13.8 % (11.6-17.2); WHITE BLOOD COUNT 11.1 TH/MM3 (4.0-11.0)
[2017-10-10 07:54] LABS: ALBUMIN 3.6 GM/DL (3.4-5.0); ALKALINE PHOSPHATASE 96 U/L (45-117); ALT (GPT) 16 U/L (10-53); AST (GOT) 13 U/L (15-37); BICARBONATE 22.9 MEQ/L (21.0-32.0); BLOOD UREA NITROGEN 12 MG/DL (7-18); CALCIUM 8.7 MG/DL (8.5-10.1); CHLORIDE 103 MEQ/L (98-107); CREATININE 1.15 MG/DL (0.50-1.00); GLOMERULAR FILTRATION RATE 45 ML/MIN (>89); GLUCOSE,RANDOM 275 MG/DL (74-106); SODIUM (NA) 135 MEQ/L (136-145); TOTAL BILIRUBIN ADULT 0.4 MG/DL (0.2-1.0); TOTAL PROTEIN 7.1 GM/DL (6.4-8.2)
[2017-10-10] MEDS: INSULIN ASPART SUPPLEMENTAL SCALE SQ SCH ×4 (08:00→21:07)
[2017-10-10] MEDS: INSULIN DETEMIR 100 UNITS/ML VIAL SQ SCH ×2 (09:00→21:07)
[2017-10-10] MEDS: CITALOPRAM HYDROBROMIDE 20 MG TAB PO SCH (09:00)
[2017-10-10] MEDS: MEMANTINE HCL 5 MG TAB PO SCH (09:00)
[2017-10-10] MEDS: DOCUSATE SODIUM 50 MG/SENNA 8.6 MG TAB PO SCH ×2 (09:00→20:23)
[2017-10-10] MEDS: SODIUM CHLORIDE 0.9% FLUSH 10 ML FLUSH IV FLUSH SCH ×2 (09:00→21:00)
--- NOTE | 2017-10-10 10:23 | HHI.PR ---
Subjective Remarks in no acute distress. denies pain. awake and alert; oriented to person, place and partly to time. son at the bedside. d/w the PT. Objective Vitals Vital Signs Date Time Temp Pulse Resp B/P (MAP) Pulse Ox O2 Delivery O2 Flow Rate FiO2 10/10/17 04:00 98.1 86 17 150/70 (96) 95 10/10/17 01:25 10/10/17 01:10 98.2 89 16 162/75 (104) 96 10/09/17 23:02 87 20 153/74 (100) 100 Room Air 10/09/17 21:39 18 100 Room Air 10/09/17 21:37 87 16 100 Room Air 10/09/17 21:31 97.7 84 20 156/74 (101) 100 I/O 10/09/17 10/09/17 10/09/17 10/10/17 10/10/17 10/10/17 07:00 15:00 23:00 07:00 15:00 23:00 Intake Total 1000 ml Balance 1000 ml Intake IV Total 1000 ml # Voids 1 Result Diagram: 10/10/17 0429 10/10/17 0429 Imaging Last Impressions Chest X-Ray 10/09/174 Signed Impressions: Service Date/Time: Monday, October 09, 2017 21:43 - CONCLUSION: No acute disease. Walter Acevedo MD Head CT 10/09/17 0000 Signed Impressions: Service Date/Time: Monday, October 09, 2017 23:39 - CONCLUSION: 1. No evidence of acute intracranial pathology. Chronic ischemic changes as above. John Alcantar MD Objective Remarks GENERAL: This is a well-nourished, well-developed patient, in no apparent distress. CARDIOVASCULAR: Regular rate and irregular rhythm without murmurs, gallops, or rubs. RESPIRATORY: Clear to auscultation. Breath sounds equal bilaterally. No wheezes , rales, or rhonchi. GASTROINTESTINAL: Abdomen soft, non-tender, nondistended. Normal, active bowel sounds MUSCULOSKELETAL: Extremities without clubbing, cyanosis, or edema. NEURO: awake, alert, oriented to person, place and partly to time . Medications and IVs Inpatient Medications Acetaminophen (Tylenol) 650 mg Q6H PRN PO FEVER/PAIN SCALE 1 TO 2; Start at 00:00 Acetaminophen/ Hydrocodone Bitart ([place] 5-325 Mg) 1 tab Q4H PRN PO PAIN SCALE 3 TO 5; Start 10/10/17 at 00:00 Acetaminophen/ Hydrocodone Bitart ([place] 10-325 Mg) 1 tab Q4H PRN PO PAIN SCALE 6 TO 10; Start 10/10/17 at 00:00 Bisacodyl (Dulcolax Supp) 10 mg DAILY PRN RECTAL SEVERE CONSITIPATION; Start at 00:00 Citalopram Hydrobromide (CeleXA) 10 mg DAILY PO Last administered on 10/10/17at 09:00; Start 10/10/17 at 09:00 Dextrose (D50w (Vial) Inj) 50 ml UNSCH PRN IV PUSH HYPOGLYCEMIA-SEE COMMENTS; Start 10/10/17 at 00:00 Glucagon (Glucagon Inj) 1 mg UNSCH PRN OTHER HYPOGLYCEMIA-SEE COMMENTS; Start 10/10/17 at 00:00 Insulin Aspart (NovoLOG SUPPLEMENTAL SCALE) 1 ACHS SLIDING SCALE SQ Last administered on 10/10/17at 08:00; Start 10/10/17 at 08:00 Insulin Detemir (Levemir Inj) 12 units Q12HR SQ Last administered on 10/10/17at 09:00; Start 10/10/17 at 09:00 Insulin Human Regular (NovoLIN R INJ) 8 units ONCE ONCE SQ Last administered on 10/09/17at 23:02; Start 10/09/17 at 23:00; Stop 10/09/17 at 23:01; Status DC Lactulose (Lactulose Liq) 30 ml DAILY PRN PO SEVERE CONSITIPATION; Start at 00:00 Magnesium Hydroxide (Milk Of Magnesia Liq) 30 ml Q12H PRN PO Mild constipation ; Start 10/10/17 at 00:00 Memantine (Namenda) 5 mg DAILY PO Last administered on 10/10/17at 09:00; Start at 09:00 Ondansetron HCl (Zofran Inj) 4 mg Q6H PRN IVP NAUSEA OR VOMITING; Start at 00:00 Senna/Docusate Sodium (Leticia-Colace) 1 tab BID PO Last administered on 10/10/17at 09:00; Start 10/10/17 at 09:00 Sennosides (Senokot) 17.2 mg Q12H PRN PO Moderate constipation; Start 10/10/17 at 00:00 Sodium Chloride (NS Flush) 2 ml BID IV FLUSH ; Start 10/10/17 at 09:00 A/P Problem List: (1) Encephalopathy ICD Code: G93.40 - Encephalopathy, unspecified (2) Dementia ICD Code: F03.90 - Unspecified dementia without behavioral disturbance Status: Acute (3) ANASTASIA (acute kidney injury) ICD Code: N17.9 - Acute kidney failure, unspecified (4) DM (diabetes mellitus) ICD Code: E11.9 - Type 2 diabetes mellitus without complications Assessment and Plan 1. Encephalopathy: sent to ER from [facility] secondary to AMS. Son reports more confused than baseline. CT Head w/ no acute findings. U/a negative for UTI, no other signs of infection, CXR negative. Neuro checks. PT for eval/tx. 2. Dementia: Severe. Son attempting to get placement in [facility]ed Dementia Unit for worsening mental status. Resumed home Namenda/Celexa. Case Management to assist w/ placement 3. ANASTASIA: Creatinine improved- continue IV fluid. 4. DM: Uncontrolled. Son reports patient is noncompliant with medications. resumed long-acting insulin- continue accu-check with SSI. 5. DVT Prophylaxis: Lovenox. Murtaza Givens MD Oct 10, 2017 10:23
[2017-10-10] MEDS: ENOXAPARIN SODIUM 40 MG/0.4 ML SYRINGE SQ SCH (13:27)
--- NOTE | 2017-10-10 18:43 | EKG ---
Date Performed: 10/09/2017 Time Performed: 21:19:16 PTAGE: 82 years EKG: Sinus rhythm WITH SINUS ARRHYTHMIA NORMAL ECG PREVIOUS TRACING : 01/23/2017 03.39 Compared to prior tracing no significant change DOCTOR: Vikki Ziegler Interpretating Date/Time 10/10/2017 18:42:18
[2017-10-10] MEDS ORDERED: HALOPERIDOL LACTATE 5 MG/ML AMP IM ONE ×2 (20:00→21:45)
[2017-10-11 03:22] VITALS: BP 134/82; PULSE 87; RESP 16; O2SAT 100
[2017-10-11 05:21] VITALS: PULSE 85
[2017-10-11] MEDS: SODIUM CHLOR 0.9% 1000 ML INJ 1,000 ML IV SCH (05:52)
[2017-10-11 08:00] VITALS: BP 142/69; PULSE 88; RESP 16; TEMP 98.1; O2SAT 97
[2017-10-11] MEDS: SODIUM CHLORIDE 0.9% FLUSH 10 ML FLUSH IV FLUSH SCH ×2 (09:45→21:00)
[2017-10-11] MEDS: CITALOPRAM HYDROBROMIDE 20 MG TAB PO SCH (10:58)
[2017-10-11] MEDS: DOCUSATE SODIUM 50 MG/SENNA 8.6 MG TAB PO SCH ×2 (10:58→21:00)
[2017-10-11] MEDS: MEMANTINE HCL 5 MG TAB PO SCH (10:59)
[2017-10-11] MEDS: INSULIN ASPART SUPPLEMENTAL SCALE SQ SCH ×4 (11:13→21:11)
[2017-10-11] MEDS: INSULIN DETEMIR 100 UNITS/ML VIAL SQ SCH ×2 (11:13→21:10)
--- NOTE | 2017-10-11 11:52 | HHI.PR ---
Subjective Remarks in no acute distress. walking in the room. denies pain. blood sugar trend noted. Objective Vitals Vital Signs Date Time Temp Pulse Resp B/P (MAP) Pulse Ox O2 Delivery O2 Flow Rate FiO2 10/11/17 08:00 98.1 88 16 142/69 (93) 97 10/11/17 05:21 85 10/11/17 03:22 87 16 134/82 (99) 100 10/10/17 23:14 98.1 85 16 164/69 (100) 100 10/10/17 22:05 98.9 89 16 139/80 (99) 100 10/10/17 16:25 79 10/10/17 15:54 99.5 82 16 146/76 (99) 100 10/10/17 12:35 80 10/10/17 12:17 99.0 83 16 147/66 (93) 95 I/O 10/10/17 10/10/17 10/10/17 10/11/17 10/11/17 10/11/17 07:00 15:00 23:00 07:00 15:00 23:00 Intake Total 1000 ml 06794 ml 300 ml Balance 1000 ml 69110 ml 300 ml Intake Oral 300 ml IV Total 1000 ml 73599 ml # Voids 1 3 3 # Bowel Movements 0 Result Diagram: 10/10/179 10/10/179 Imaging Last Impressions Chest X-Ray 10/09/174 Signed Impressions: Service Date/Time: Monday, October 09, 2017 21:43 - CONCLUSION: No acute disease. Walter Acevedo MD Head CT 10/09/17 0000 Signed Impressions: Service Date/Time: Monday, October 09, 2017 23:39 - CONCLUSION: 1. No evidence of acute intracranial pathology. Chronic ischemic changes as above. John Alcantar MD Objective Remarks GENERAL: This is a well-nourished, well-developed patient, in no apparent distress. CARDIOVASCULAR: Regular rate and irregular rhythm without murmurs, gallops, or rubs. RESPIRATORY: Clear to auscultation. Breath sounds equal bilaterally. No wheezes , rales, or rhonchi. GASTROINTESTINAL: Abdomen soft, non-tender, nondistended. Normal, active bowel sounds MUSCULOSKELETAL: Extremities without clubbing, cyanosis, or edema. NEURO: awake, alert, oriented to person, place and partly to time . Medications and IVs Inpatient Medications Acetaminophen (Tylenol) 650 mg Q6H PRN PO FEVER/PAIN SCALE 1 TO 2; Start at 00:00 Acetaminophen/ Hydrocodone Bitart ([place] 5-325 Mg) 1 tab Q4H PRN PO PAIN SCALE 3 TO 5; Start 10/10/17 at 00:00 Acetaminophen/ Hydrocodone Bitart ([place] 10-325 Mg) 1 tab Q4H PRN PO PAIN SCALE 6 TO 10; Start 10/10/17 at 00:00 Bisacodyl (Dulcolax Supp) 10 mg DAILY PRN RECTAL SEVERE CONSITIPATION; Start at 00:00 Citalopram Hydrobromide (CeleXA) 10 mg DAILY PO Last administered on 10/11/17at 10:58; Start 10/10/17 at 09:00 Dextrose (D50w (Vial) Inj) 50 ml UNSCH PRN IV PUSH HYPOGLYCEMIA-SEE COMMENTS; Start 10/10/17 at 00:00 Enoxaparin Sodium (Lovenox Inj) 40 mg Q24H SQ Last administered on 10/10/17at 13: 27; Start 10/10/17 at 12:00 Glucagon (Glucagon Inj) 1 mg UNSCH PRN OTHER HYPOGLYCEMIA-SEE COMMENTS; Start 10/10/17 at 00:00 Haloperidol Lactate (Haldol Inj) 2 mg ONCE ONCE IM ; Start 10/10/17 at 21:45; Stop 10/10/17 at 21:46; Status DC Insulin Aspart (NovoLOG SUPPLEMENTAL SCALE) 1 ACHS SLIDING SCALE SQ Last administered on 10/11/17at 11:13; Start 10/10/17 at 08:00 Insulin Detemir (Levemir Inj) 12 units Q12HR SQ Last administered on 10/11/17at 11:13; Start 10/10/17 at 09:00 Insulin Human Regular (NovoLIN R INJ) 8 units ONCE ONCE SQ Last administered on 10/09/17at 23:02; Start 10/09/17 at 23:00; Stop 10/09/17 at 23:01; Status DC Lactulose (Lactulose Liq) 30 ml DAILY PRN PO SEVERE CONSITIPATION; Start at 00:00 Magnesium Hydroxide (Milk Of Magnesia Liq) 30 ml Q12H PRN PO Mild constipation ; Start 10/10/17 at 00:00 Memantine (Namenda) 5 mg DAILY PO Last administered on 10/11/17at 10:59; Start at 09:00 Ondansetron HCl (Zofran Inj) 4 mg Q6H PRN IVP NAUSEA OR VOMITING; Start at 00:00 Senna/Docusate Sodium (Leticia-Colace) 1 tab BID PO Last administered on 10/10/17at 09:00; Start 10/10/17 at 09:00 Sennosides (Senokot) 17.2 mg Q12H PRN PO Moderate constipation; Start 10/10/17 at 00:00 Sodium Chloride (NS Flush) 2 ml BID IV FLUSH ; Start 10/10/17 at 09:00 A/P Problem List: (1) Encephalopathy ICD Code: G93.40 - Encephalopathy, unspecified (2) Dementia ICD Code: F03.90 - Unspecified dementia without behavioral disturbance Status: Acute (3) ANASTASIA (acute kidney injury) ICD Code: N17.9 - Acute kidney failure, unspecified (4) DM (diabetes mellitus) ICD Code: E11.9 - Type 2 diabetes mellitus without complications Assessment and Plan 1. Encephalopathy: sent to ER from [facility] secondary to AMS. Son reports more confused than baseline. is more alert toady. CT Head w/ no acute findings. U/a negative for UTI, no other signs of infection, CXR negative. Neuro checks. PT for eval/tx. 2. Dementia: Severe. Son attempting to get placement in [facility]ed [facility]ementia Unit for worsening mental status. Resumed home Namenda/Celexa. Case Management to assist w/ placement 3. ANASTASIA: Creatinine improved- continue IV fluid. 4. DM: Uncontrolled. Son reports patient is noncompliant with medications. will increase long-acting insulin- continue accu-check with SSI. 5. DVT Prophylaxis: Lovenox. Discharge Planning dc to SNF when arrangements made. Murtaza Givens MD Oct 11, 2017 11:52
[2017-10-11 12:52] VITALS: BP 144/67; PULSE 85; RESP 16; TEMP 98.4; O2SAT 97
[2017-10-11] MEDS ORDERED: LEVEMIR SQ (13:00)
[2017-10-11] MEDS ORDERED: CELE20TA PO (13:00)
[2017-10-11] MEDS ORDERED: NOVOLOGSS SQ (13:00)
[2017-10-11] MEDS ORDERED: NAME5TAB2 PO (13:00)
--- NOTE | 2017-10-11 13:05 | HHI.DCPOC ---
Discharge Care Plan Diagnosis: (1) Dementia (2) DM (diabetes mellitus) Goals to Promote Your Health * To prevent worsening of your condition and complications * To maintain your health at the optimal level Directions to Meet Your Goals Take your medications as prescribed Follow your dietary instruction Follow activity as directed Keep your appointments as scheduled Take your immunizations and boosters as scheduled If your symptoms worsen call your PCP, if no PCP go to Urgent Care Center or Emergency Room Smoking is Dangerous to Your Health. Avoid second hand smoke Call the 24-hour hour crisis hotline for domestic abuse at Kathy Paul PA-C Oct 11, 2017 1:05 pm
[2017-10-11] MEDS: ENOXAPARIN SODIUM 40 MG/0.4 ML SYRINGE SQ SCH (13:35)
[2017-10-11 17:17] VITALS: BP 169/81; PULSE 88; RESP 18; TEMP 97.7
[2017-10-11 20:55] VITALS: BP 159/72; PULSE 87; RESP 18; TEMP 98.3; O2SAT 96
[2017-10-12 00:52] VITALS: BP 140/75; PULSE 79; RESP 18; TEMP 98; O2SAT 96
[2017-10-12 02:16] VITALS: PULSE 91
[2017-10-12 04:43] VITALS: BP 142/78; PULSE 83; RESP 18; TEMP 97.9; O2SAT 99
[2017-10-12 08:00] VITALS: BP 158/79; PULSE 77; RESP 16; TEMP 97.8; O2SAT 95
[2017-10-12] MEDS: INSULIN ASPART SUPPLEMENTAL SCALE SQ SCH ×2 (08:00→12:00)
[2017-10-12] MEDS: SODIUM CHLORIDE 0.9% FLUSH 10 ML FLUSH IV FLUSH SCH (09:00)
[2017-10-12] MEDS: DOCUSATE SODIUM 50 MG/SENNA 8.6 MG TAB PO SCH (09:50)
[2017-10-12] MEDS: MEMANTINE HCL 5 MG TAB PO SCH (09:50)
[2017-10-12] MEDS: CITALOPRAM HYDROBROMIDE 20 MG TAB PO SCH (09:50)
[2017-10-12] MEDS: INSULIN DETEMIR 100 UNITS/ML VIAL SQ SCH (09:50)
[2017-10-12 12:00] VITALS: BP 143/70; PULSE 86; RESP 18; TEMP 97.9; O2SAT 97
[2017-10-12] MEDS: ENOXAPARIN SODIUM 40 MG/0.4 ML SYRINGE SQ SCH (12:00)
--- NOTE | 2017-10-12 12:57 | HHI.PR ---
Subjective Remarks in no acute distress. denies pain. no new complaints. blood sugar trend noted. Objective Vitals Vital Signs Date Time Temp Pulse Resp B/P (MAP) Pulse Ox O2 Delivery O2 Flow Rate FiO2 10/12/17 12:00 97.9 86 18 143/70 (94) 97 10/12/17 08:00 97.8 77 16 158/79 (105) 95 10/12/17 04:43 97.9 83 18 142/78 (99) 99 10/12/17 02:16 91 10/12/17 00:52 98.0 79 18 140/75 (96) 96 10/11/17 20:55 98.3 87 18 159/72 (101) 96 10/11/17 17:17 97.7 88 18 169/81 (110) I/O 10/11/17 10/11/17 10/11/17 10/12/17 10/12/17 10/12/17 07:00 15:00 23:00 07:00 15:00 23:00 Intake Total 300 ml Balance 300 ml Intake Oral 300 ml # Voids 3 3 Result Diagram: 10/10/17 0429 10/10/17 0429 Imaging Last Impressions Chest X-Ray 10/09/174 Signed Impressions: Service Date/Time: Monday, October 09, 2017 21:43 - CONCLUSION: No acute disease. Walter Acevedo MD Head CT 10/09/17 0000 Signed Impressions: Service Date/Time: Monday, October 09, 2017 23:39 - CONCLUSION: 1. No evidence of acute intracranial pathology. Chronic ischemic changes as above. John Alcantar MD Objective Remarks GENERAL: This is a well-nourished, well-developed patient, in no apparent distress. CARDIOVASCULAR: Regular rate and irregular rhythm without murmurs, gallops, or rubs. RESPIRATORY: Clear to auscultation. Breath sounds equal bilaterally. No wheezes , rales, or rhonchi. GASTROINTESTINAL: Abdomen soft, non-tender, nondistended. Normal, active bowel sounds MUSCULOSKELETAL: Extremities without clubbing, cyanosis, or edema. NEURO: awake, alert, oriented to person, place and partly to time . Procedures none Medications and IVs Inpatient Medications Acetaminophen (Tylenol) 650 mg Q6H PRN PO FEVER/PAIN SCALE 1 TO 2 Last administered on 10/11/17at 12:42; Start 10/10/17 at 00:00 Acetaminophen/ Hydrocodone Bitart ([place] 5-325 Mg) 1 tab Q4H PRN PO PAIN SCALE 3 TO 5; Start 10/10/17 at 00:00 Acetaminophen/ Hydrocodone Bitart ([place] 10-325 Mg) 1 tab Q4H PRN PO PAIN SCALE 6 TO 10; Start 10/10/17 at 00:00 Bisacodyl (Dulcolax Supp) 10 mg DAILY PRN RECTAL SEVERE CONSITIPATION; Start at 00:00 Citalopram Hydrobromide (CeleXA) 10 mg DAILY PO Last administered on 10/12/17at 09:50; Start 10/10/17 at 09:00 Dextrose (D50w (Vial) Inj) 50 ml UNSCH PRN IV PUSH HYPOGLYCEMIA-SEE COMMENTS; Start 10/10/17 at 00:00 Enoxaparin Sodium (Lovenox Inj) 40 mg Q24H SQ Last administered on 10/11/17at 13: 35; Start 10/10/17 at 12:00 Glucagon (Glucagon Inj) 1 mg UNSCH PRN OTHER HYPOGLYCEMIA-SEE COMMENTS; Start 10/10/17 at 00:00 Haloperidol Lactate (Haldol Inj) 2 mg ONCE ONCE IM ; Start 10/10/17 at 21:45; Stop 10/10/17 at 21:46; Status DC Insulin Aspart (NovoLOG SUPPLEMENTAL SCALE) 1 ACHS SLIDING SCALE SQ Last administered on 10/11/17at 21:11; Start 10/10/17 at 08:00 Insulin Detemir (Levemir Inj) 15 units Q12HR SQ Last administered on 10/12/17at 09:50; Start 10/11/17 at 21:00 Insulin Human Regular (NovoLIN R INJ) 8 units ONCE ONCE SQ Last administered on 10/09/17at 23:02; Start 10/09/17 at 23:00; Stop 10/09/17 at 23:01; Status DC Lactulose (Lactulose Liq) 30 ml DAILY PRN PO SEVERE CONSITIPATION; Start at 00:00 Magnesium Hydroxide (Milk Of Magnesia Liq) 30 ml Q12H PRN PO Mild constipation ; Start 10/10/17 at 00:00 Memantine (Namenda) 5 mg DAILY PO Last administered on 10/12/17at 09:50; Start 10/10/17 at 09:00 Ondansetron HCl (Zofran Inj) 4 mg Q6H PRN IVP NAUSEA OR VOMITING; Start at 00:00 Senna/Docusate Sodium (Leticia-Colace) 1 tab BID PO Last administered on at 09:50; Start 10/10/17 at 09:00 Sennosides (Senokot) 17.2 mg Q12H PRN PO Moderate constipation; Start 10/10/17 at 00:00 Sodium Chloride (NS Flush) 2 ml BID IV FLUSH Last administered on 10/11/17at 09: 45; Start 10/10/17 at 09:00 A/P Problem List: (1) Encephalopathy ICD Code: G93.40 - Encephalopathy, unspecified (2) Dementia ICD Code: F03.90 - Unspecified dementia without behavioral disturbance Status: Acute (3) ANASTASIA (acute kidney injury) ICD Code: N17.9 - Acute kidney failure, unspecified (4) DM (diabetes mellitus) ICD Code: E11.9 - Type 2 diabetes mellitus without complications Assessment and Plan 1. Encephalopathy: improved. . CT Head w/ no acute findings. U/a negative for UTI, no other signs of infection, CXR negative. Neuro checks. PT for eval/tx. 2. Dementia: Severe. Son attempting to get placement in Locked Dementia Unit for worsening mental status. Resumed home Namenda/Celexa. Case Management to assist w/ placement 3. ANASTASIA: Creatinine improved- continue IV fluid. 4. DM: Uncontrolled. Son reports patient is noncompliant with medications. continue levemir- add premeal short-acting insulin.- continue accu-check with SSI. 5. DVT Prophylaxis: Lovenox. Discharge Planning dc to SNF when arrangements made. Murtaza Givens MD Oct 12, 2017 12:57
[2017-10-12] MEDS ORDERED: NOVOLOGP2 SQ (13:00)
[2017-10-12] MEDS ORDERED: INSULIN ASPART 1,000 UNITS/10 ML VIAL SQ SCH (17:00)
== END 2017-10-12 18:43 | disposition home or self-care (01) ==
LOC: NEPC 21:06 → INTOOBSV 23:58 → NEDA 23:58 → NEPGCP 10-10 01:45
PROVIDERS: ADMIT Internal Medicine; ATTEND Internal Medicine
DX: G93.40 Encephalopathy, unspecified (principal); F03.90 Unspecified dementia, unspecified severity, without behavioral disturbance, psychotic disturbance, mood disturbance, and anxiety; N17.9 Acute kidney failure, unspecified; E11.65 Type 2 diabetes mellitus with hyperglycemia; R06.02 Shortness of breath; I10 Essential (primary) hypertension; E78.00 Pure hypercholesterolemia, unspecified; I49.9 Cardiac arrhythmia, unspecified; E03.9 Hypothyroidism, unspecified; F41.9 Anxiety disorder, unspecified; F32.9 Major depressive disorder, single episode, unspecified; Z85.3 Personal history of malignant neoplasm of breast; Z87.440 Personal history of urinary (tract) infections; Z79.4 Long term (current) use of insulin; Z91.14 Patient's other noncompliance with medication regimen
CPT/HCPCS: 70450; 71045; 80053; 81001; 82010; 82948; 83605; 83690; 83735; 84484; 85025; 87040; 93005; 96125; 96360; 96361; 96372; 97110; 97116; 97162; 97166; 99291; G0378; G8987; G8988; G9168; G9169; G9170; J1630; J1650; J1815; J7030; J7040; P9612

== ENCOUNTER 2018-03-03 11:36 | Emergency (ER) | payer OTHER, MEDICAID ==
[~2018-03-03] VITALS: Ht 167.6 cm; Wt 80.0 kg
[~2018-03-03 11:36] MED LIST changes: -ARIC5TAB PO; +NOVOLOGSS SQ
[2018-03-03 11:56] VITALS: BP 166/76; PULSE 76; RESP 18; TEMP 98.3; O2SAT 98
--- NOTE | 2018-03-03 12:27 | PD ---
HPI Chief Complaint: Fall Time Seen by Provider: 12:06 Travel History International Travel<30 days: No Contact w/Intl Traveler<30days: No Traveled to known affect area: No History of Present Illness HPI The patient was seen and examined in the presence of the nurse. This is a demented residential patient that had a slip and fall. She hit her forehead and nose on the ground. She has a small laceration to the nasal bridge. She complains of some headache. No neck pain or symptoms. Takes a baby aspirin daily. She is primarily Polish speaker. Polish-speaking nursing staff have evaluated her. She is demented and I do not think formal translation would add much to this. No extremity pain. Duration 2 hours. No alleviating factors. No exacerbating factors. Symptom severity is moderate PFSH Past Medical History Blood Disorders: No Anxiety: Yes Depression: Yes Heart Rhythm Problems: No Cancer: Yes (breast cancer) Cardiovascular Problems: Yes (HTN) High Cholesterol: Yes Chemotherapy: No Chest Pain: No Congestive Heart Failure: No Diabetes: Yes Patient Takes Glucophage: No Endocrine: Yes Genitourinary: No Headaches: Yes Hypertension: Yes Implanted Vascular Access Dvce: No Musculoskeletal: No Neurologic: Yes (possible tia/cva, dementia) Psychiatric: Yes (depression, anxiety) Reproductive: No Respiratory: No Radiation Therapy: No Seizures: No Thyroid Disease: Yes ?: Not Past Surgical History Other Surgery: Yes Social History Alcohol Use: No Tobacco Use: No Substance Use: No Allergies-Medications (Allergen,Severity, Reaction): Coded Allergies: No Known Allergies (Verified Allergy, Unknown, 10/10/17) Reported Meds & Prescriptions Reported Meds & Active Scripts Active Novolog Inj (Insulin Aspart) 1,000 Unit/10 Ml Vial 3 Units SQ TIDAC 15 Days Pharmacist: Please emphasize to patient that this replaces her home insulin regimen. Novolog Inj (Insulin Aspart) 100 Unit/Ml Inj 1 Unit SQ ACHS SLIDING SCALE 30 Days Levemir Inj (Insulin Detemir) 1,000 unit/ 10 ML Vial 15 Units SQ Q12HR 30 Days Do not mix with any other Insulin. Namenda (Memantine) 5 Mg Tab 5 Mg PO DAILY 30 Days Celexa (Citalopram Hydrobromide) 20 Mg Tab 10 Mg PO DAILY 30 Days Review of Systems General / Constitutional: No: Fever Eyes: No: Visual changes HENT: Positive: Headaches Cardiovascular: No: Chest Pain or Discomfort Respiratory: No: Shortness of Breath Gastrointestinal: No: Abdominal Pain Genitourinary: No: Dysuria Musculoskeletal: No: Pain Skin: No Rash Neurologic: No: Weakness Psychiatric: No: Depression Endocrine: No: Polydipsia Hematologic/Lymphatic: No: Easy Bruising Physical Exam Narrative GENERAL: Well-nourished, well-developed patient in no apparent distress. SKIN: Focused skin assessment reveals no rash and nodules. Skin is Warm and dry. HEAD: Atraumatic. Normocephalic. EYES: Pupils equal and round. No scleral icterus. No injection or drainage. ENT: No nasal bleeding or discharge. Mucous membranes pink and moist. There is a 1 cm laceration to the nasal bridge NECK: Trachea midline. No JVD. No midline tenderness CARDIOVASCULAR: Regular rate and rhythm. No murmur appreciated. RESPIRATORY: No accessory muscle use. Clear to auscultation. Breath sounds equal bilaterally. GASTROINTESTINAL: Abdomen soft, non-tender, nondistended. Hepatic and splenic margins not palpable. MUSCULOSKELETAL: No obvious deformities. No clubbing. No cyanosis. No edema. NEUROLOGICAL: Awake and alert. No obvious cranial nerve deficits. Motor grossly within normal limits. Normal speech. PSYCHIATRIC: Appropriate mood and affect; insight and judgment reduced . Data Data Last Documented VS Vital Signs Date Time Temp Pulse Resp B/P (MAP) Pulse Ox O2 Delivery O2 Flow Rate FiO2 03/03/18 11:56 98.3 76 18 166/76 (106) 98 Room Air Orders Orders Ct Brain W/O Iv Contrast(Rout) (03/03/18 ) Ed Discharge Order (03/03/18 13:26) MDM Medical Decision Making Medical Screen Exam Complete: Yes Emergency Medical Condition: Yes Medical Record Reviewed: Yes Differential Diagnosis Intracranial hemorrhage, contusion, concussion Narrative Course I have reviewed the patient's electronic medical record. I do not see a neurologic deficit but given her complaint of headache and dementia I have ordered brain scan which is normal LACERATION LOCATION: Nasal bridge LENGTH: 1 cm NUMBER OF STITCHES/ZULY: Dermabond REPAIR: The area of the laceration was cleaned and evaluated. The wound was copiously irrigated and explored without evidence of foreign body, tendon injury or neurovascular injury. The wound was closed using Dermabond . This was a single layer repair. Patient tolerated the procedure well. Diagnosis Primary Impression: Head injury due to trauma Qualified Codes: S09.90XA - Unspecified injury of head, initial encounter Additional Impressions: Post-traumatic headache, not intractable Qualified Codes: G44.319 - Acute post-traumatic headache, not intractable Nasal laceration Qualified Codes: S01.21XA - Laceration without foreign body of nose, initial encounter Additional Instructions: Follow-up with residential MD Med/Other Pt SpecificInfo: Other Disposition: 03 DISCHARGE TO SNF Condition: Stable Julian Purcell MD Mar 03, 2018 12:27
--- NOTE | 2018-03-03 13:24 | RADRPT ---
EXAM DATE: 03/03/2018 1:20 PM EDT AGE/SEX: 82 years / Female INDICATIONS: Patient fell, hitting head. CLINICAL DATA: This is the patient's initial encounter. Patient reports that signs and symptoms have been present for 1 day and indicates a pain score of 0/10. MEDICAL/SURGICAL HISTORY: Cardiovascular disease. Hypertension. Diabetes. breast cancer. None. RADIATION DOSE: 56.35 CTDI (mGy) COMPARISON: [facility] – [place], CT BRAIN W/O CONTRAST, 10/09/2017. . TECHNIQUE: CT of the head without contrast. Using automated exposure control and adjustment of the mA and/or kV according to patient size, radiation dose was kept as low as reasonably achievable to ob tain optimal diagnostic quality images. FINDINGS: Cerebrum: Minimal central and cortical atrophy.. No evidence of midline shift, mass lesion, hemorrh age or acute infarction. No extraaxial fluid collections are seen. Moderate periventricular white ma tter changes are noted. Posterior Fossa: The cerebellum and brainstem are intact. The 4th ventricle is midline. The cerebe llopontine angle is unremarkable. Extracranial: The visualized portion of the orbits is intact. Skull: The calvaria is intact. No evidence of skull fracture. CONCLUSION: 1. Central and cortical atrophy otherwise negative for an acute process. 2. Stable moderate periventricular white matter changes. Electronically signed by: Osmel Burgos MD 03/03/2018 1:23 PM EDT
[2018-03-03 13:50] VITALS: BP 165/78; PULSE 89; RESP 18; O2SAT 99
== END 2018-03-03 14:51 | disposition home or self-care (01) ==
LOC: NEPD 11:36
DX: S01.21XA Laceration without foreign body of nose, initial encounter (principal); S09.90XA Unspecified injury of head, initial encounter; G44.319 Acute post-traumatic headache, not intractable; F03.90 Unspecified dementia, unspecified severity, without behavioral disturbance, psychotic disturbance, mood disturbance, and anxiety; I10 Essential (primary) hypertension; E11.9 Type 2 diabetes mellitus without complications; E78.00 Pure hypercholesterolemia, unspecified; F41.9 Anxiety disorder, unspecified; W01.0XXA Fall on same level from slipping, tripping and stumbling without subsequent striking against object, initial encounter
CPT/HCPCS: 12011; 70450